=== PATIENT | male | born 1945 | race Caucasian/White ===

== ENCOUNTER → 2023-04-07 07:03 | Outpatient (REF) | payer MEDICARE, BC, SELFPAY ==
[2023-04-07 07:33] LABS: % Basophils 0.8 % (0-2); % Eosinophils 10.3 % (0-6); % Immature Granulocytes 0.4 % (0-0.5); % Lymphocytes 6.1 % (20.5-51.1); % Monocytes 12.7 % (1.7-9.3); % Neutrophils 69.7 % (42.2-75.2); Absolute Eosinophils 0.5 10^3/uL (0-0.7); Absolute Lymphocytes 0.3 10^3/uL (1.2-3.4); Absolute Monocytes 0.6 10^3/uL (0.1-0.6); Absolute Neutrophils 3.5 10^3/uL (1.4-6.5); Hematocrit 45.1 % (39.0-52.0); Hemoglobin 15.1 g/dL (13.0-18.0); Mean Corp Hgb Conc. 33.5 g/dL (33.0-37.0); Mean Corpuscular Volume 89.5 fL (80.0-94.0); Mean Platelet Volume 10.5 fL (7.4-10.4); Nucleated Red Blood Cells % 0 % (-); Platelet Count 266 10^3/uL (130-400); Red Blood Cell Count 5.04 10^6/uL (4.70-6.10); Red Cell Dist. Width 13.6 % (11.5-14.5)
[2023-04-07 07:57] LABS: ALT (SGPT) 35 U/L (0-50); AST (SGOT) 44 U/L (17-59); Albumin 3.2 g/dl (3.5-5.0); Alkaline Phosphatase 104 U/L (38-126); Blood Urea Nitrogen 23 mg/dl (9-20); Calcium 9.3 mg/dl (8.4-10.2); Carbon Dioxide 34 mmol/L (22-30); Chloride 102 mmol/L (98-107); Glucose 103 mg/dl (70-99); HDL Cholesterol 58 mg/dl; LDL Cholesterol, Calculated 94 mg/dl; Potassium 4.5 mmol/L (3.5-5.1); Sodium 136 mmol/L (135-145); Total Bilirubin 0.4 mg/dl (0.2-1.3); Total Cholesterol 163 mg/dl (50-199); Total Protein 5.5 g/dl (6.3-8.2); Triglyceride 56 mg/dl (10-149); Very Low Density Lipoprotein 11 mg/dl (0-30); eGFR > 60.00
[2023-04-07 08:28] LABS: TSH 2.94 uIU/ml (0.47-4.68)
[2023-04-07 09:34] LABS: Glycohemoglobin (HgbA1c) 6.4 % (4.0-5.6)
== END ==
LOC: REG 07:03
PROVIDERS: ATTENDING PHYSICIAN Family Medicine
DX: R73.9 Hyperglycemia, unspecified (principal); E03.9 Hypothyroidism, unspecified; R73.03 Prediabetes; I10 Essential (primary) hypertension; R53.83 Other fatigue
CPT/HCPCS: 36415; 80053; 80061; 83036; 84443; 85025

== ENCOUNTER 2023-04-19 06:41 | Inpatient (IN) | payer MEDICARE, BC, SELFPAY ==
[2023-04-19] VITALS (18 sets, daily range): BP systolic 103–195; BP diastolic 55–112; BMI 24.0; BMI 23.4
--- NOTE | 2023-04-19 04:11 | ED.GENMED ---
History of Present Illness
<SANIA Boggs - Last Filed: 04/19/23 04:28>
General
Chief Complaint: Abdominal Pain
Source: patient
Exam Limitations: none
Time Seen by Provider: 04/19/23 03:57
Nursing documentation reviewed up to this point in time: agreed with
Travel History
Have you had any contact with someone who has COVID-19?: No
Do you have any symptoms of coronavirus? Fever > 100 degrees, chills, cough, shortness of breath, sore throat, loss of taste or smell, muscle aches, or headache?: No
History of Present Illness
History of Present Illness:
This is a 78 year old male, with a PMH of HTN, prostate cancer, IBS, sleep apnea, and hypothyroidism, who presents to the ED c/o upper abdominal pain x 6 hours. Pt states he was going to bed when the pain started. He states it is localized to his
upper abdomen and is worsening. He took tums, gas-x, and 8mg of zofran 5 hours ago but they did not help. He also has associated nausea. He denies any fever, chills, SOB, WILSON, vomiting, diarrhea, constipation, congestion, or cough. Pt does state he
has had some reflux symptoms as well.
Past History
<SANIA Boggs - Last Filed: 04/19/23 04:28>
Past History
ED Past Medical History: Cancer (Prostate CA), HTN, NIDDM (Diet controlled), Hypothyroidism, Psychiatric and Other (Chronic constipation, Colitis, Cellulitis, IBS)
ED Past Surgical History: Other (Hernia repair)
Social History
Tobacco: Non-smoker
Alcohol: None
Drug: Marijuana
Personal:
Living: alone
Employment: Retired
Family History
Family History: Other (Noncontributory)
Review of Systems
<SANIA Boggs - Last Filed: 04/19/23 04:28>
Review of Systems
Allergies reviewed?: Yes
All Other Systems: ROS reviewed and negative except as documented in HPI and ROS
Constitutional: Reports no symptoms; Denies fever or chills
EENT: Reports no symptoms
Respiratory: Reports no symptoms; Denies cough or trouble breathing
ABD/GI: Reports abdominal pain and nausea; Denies vomiting, diarrhea or constipated
: Reports no symptoms
Musculoskeletal: Reports no symptoms
Skin: Reports no symptoms
Neurological: Reports no symptoms; Denies headache
Psychiatric: Reports no symptoms
Phy Exam
<SANIA Boggs - Last Filed: 04/19/23 04:28>
General Physical Exam
General Presentation: no apparent distress
General age: appears stated age
General Skin: warm and dry
General Habitus: normal
General Mental: alert
General Hydration: appears well hydrated
ENT Exam
ENT Exam: pharynx normal, normocephalic and swallowing well
Cardiovascular Exam
Cardiovascular Exam: regular rate/rhythm, no edema, no murmur and normal peripheral pulses
Pulmonary Exam
Pulmonary Exam: lungs clear, no respiratory distress, no rales, no crackles, no rhonchi, no wheezing and no cough
Gastrointestinal Exam
Gastrointestinal Exam: normal bowel sounds, distended and tender (epigastric)
Neurological Exam
Neurological Exam: alert and oriented x3
Musculoskeletal Exam
Musculoskeletal Exam: full ROM and no edema
Skin Exam
Skin Exam: normal color and warm/dry
Psychiatric Exam
Psychiatric Exam: normal mood/affect
Course
<SANIA Boggs - Last Filed: 04/19/23 04:28>
Orders/Labs/Results
Orders:
Orders
04/19/23 04:10
Electrocardiogram (*1) Stat
Reason for Study: Abdominal Pain
EKG- Treatment ONCE
Urinalysis Reflex To Culture Urgent
04/19/23 04:27
0.9% Sodium Chloride 1000 ml [Nss] 1,000 ml IV BOLUS
Morphine Sulfate 4 mg IV NOW STA
Ondansetron Injectable [Zofran] 4 mg IV NOW STA
04/19/23 04:30
CT Abd/Pel (IV only)-DH only Urgent
Comment:
Reason For Exam: upper abd pain
04/19/23 04:51
Complete Blood Count/With Diff Urgent
Comprehensive Metabolic Panel Urgent
Lactic Acid Urgent
Lipase Urgent
04/19/23 06:03
HYDROmorphone [Dilaudid] 1 mg IV NOW STA
Abnormal Lab Results
04/19/23
04:51
MPV 10.6 H fL
(7.4-10.4)
Absolute Neuts (auto) 9.3 H 10^3/uL
(1.4-6.5)
Absolute Lymphs (auto) 0.4 L 10^3/uL
(1.2-3.4)
Absolute Monos (auto) 0.8 H 10^3/uL
(0.1-0.6)
Neutrophils % 86.6 H %
(42.2-75.2)
Lymphocytes % 3.6 L %
(20.5-51.1)
BUN 24 H mg/dl
(9-20)
Creatinine 0.6 L mg/dL
(0.7-1.3)
Glucose 145 H mg/dl
(70-99)
04/19/23 04:51
04/19/23 04:51
Vital Signs
Initial and Last Documented VS:
Initial Vital Signs
Temp Pulse Resp BP Pulse Ox
97.7 F 78 22 136/77 94
04/19/23 03:46 04/19/23 03:46 04/19/23 03:46 04/19/23 03:46 04/19/23 03:46
Last Documented Vital Signs
Temp Pulse Resp BP Pulse Ox
97.7 F 88 17 172/103 93
04/19/23 03:46 04/19/23 06:15 04/19/23 06:15 04/19/23 06:04 04/19/23 06:15
<Paul Joya DO - Last Filed: 04/19/23 06:27>
Orders/Labs/Results
Orders:
Orders
04/19/23 04:10
Electrocardiogram (*1) Stat
Reason for Study: Abdominal Pain
EKG- Treatment ONCE
Urinalysis Reflex To Culture Urgent
04/19/23 04:27
0.9% Sodium Chloride 1000 ml [Nss] 1,000 ml IV BOLUS
Morphine Sulfate 4 mg IV NOW STA
Ondansetron Injectable [Zofran] 4 mg IV NOW STA
04/19/23 04:30
CT Abd/Pel (IV only)-[facility] only Urgent
Comment:
Reason For Exam: upper abd pain
04/19/23 04:51
Complete Blood Count/With Diff Urgent
Comprehensive Metabolic Panel Urgent
Lactic Acid Urgent
Lipase Urgent
04/19/23 06:03
HYDROmorphone [Dilaudid] 1 mg IV NOW STA
Abnormal Lab Results
04/19/23
04:51
MPV 10.6 H fL
(7.4-10.4)
Absolute Neuts (auto) 9.3 H 10^3/uL
(1.4-6.5)
Absolute Lymphs (auto) 0.4 L 10^3/uL
(1.2-3.4)
Absolute Monos (auto) 0.8 H 10^3/uL
(0.1-0.6)
Neutrophils % 86.6 H %
(42.2-75.2)
Lymphocytes % 3.6 L %
(20.5-51.1)
BUN 24 H mg/dl
(9-20)
Creatinine 0.6 L mg/dL
(0.7-1.3)
Glucose 145 H mg/dl
(70-99)
04/19/23 04:51
04/19/23 04:51
Vital Signs
Initial and Last Documented VS:
Initial Vital Signs
Temp Pulse Resp BP Pulse Ox
97.7 F 78 22 136/77 94
04/19/23 03:46 04/19/23 03:46 04/19/23 03:46 04/19/23 03:46 04/19/23 03:46
Last Documented Vital Signs
Temp Pulse Resp BP Pulse Ox
97.7 F 88 17 172/103 93
04/19/23 03:46 04/19/23 06:15 04/19/23 06:15 04/19/23 06:04 04/19/23 06:15
<Paul Joya DO - Last Filed: 04/19/23 06:27>
MDM/Problems Addressed
Differential Diagnosis Includes:
AAA, pancreatitis, duodenitis, gastritis, cholecystitis, IBS, colonic obstruction, small bowel obstruction
MDM/Problems Addressed:
Abdominal pain, small bowel obstruction
<DO Prisca Post Last Filed: 04/19/23 06:27>
*Radiology
Radiology exam reviewed: preliminary read by ED provider (No free air.)
*Pulse Oximetry
Patient hypoxic: no
*Hook Up Interpretation
Rate: normal
Interpretation: normal
Rhythm: sinus
*Critical Care Note
Total Time (30-74mins, 75-104mins- exclusive of procedures): Not Applicable
Data Reviewed
Source: patient
Further Testing Considered But Not Given:
Consider NG tube but patient is not vomiting and appears stable
<Paul Joya DO - Last Filed: 04/19/23 06:27>
Patient Management
Discussion with other providers: Hospitalist
Escalation/DeEscalation of care consider admission/obs:
78-year-old male who presents with pain in the upper abdomen. Appears a small bowel obstruction by CT. Continue pain control, IV fluids and admit
<Paul Joya DO - Last Filed: 04/19/23 06:27>
Update Note
Update Note:
0615 small bowel fraction by CT. Patient has not vomiting does feel little bit better. Continue to monitor symptoms and treat with IV fluids. Admit
ED Attending Note
<SANIA Boggs - Last Filed: 04/19/23 04:28>
-
Portions of this chart may have been created with voice recognition software.� Occasional wrong word or��sound alike� substitutions may have occurred due to the inherent limitations of voice recognition software.
<Paul Joya DO - Last Filed: 04/19/23 06:27>
ED Attending Note
Patient seen and examined by attending physician: Yes
I performed the substantive portion of visit, reviewed & personally made and approve the management plan that is documented in note by myself or MAYELIN.: Yes
ED Attending Note:
78-year-old male who presents with abdominal pain that began tonight around 1130 or 12. Patient states he does have a little bit of nausea. He tried Tums at home without relief. He also tried some Zofran. Patient reports the pain is in the upper
half of his abdomen. No fevers. No injury. No rash. No sick contacts. Has had IBS in the past and this is different. Exam: Awake and alert, no distress, moderate upper abdominal tenderness with moderate distention, hypoactive bowel sounds.
Assessment plan: Check labs, CT, pain control
Discharge Plan
Departure
Patient Disposition: Admit
Date of Disposition: 04/19/23
Time of Disposition: 06:19
Admit to: Med/Surg
Presentation/result/management discussed w/ accepting MD/DO: Hospitalist
Discharge Problem:
SBO (small bowel obstruction)
Prescriptions:
No Action
lisinopril 20 MG tablet
10 mg PO DAILY
Requip:
8 mg PO HS
valacyclovir [Valtrex] 1,000 MG tablet
1 tab PO DAILY
levothyroxine 25 MCG tablet
25 mcg PO DAILY
gabapentin 300 MG capsule
600 mg PO HS
Flonase Nasal [place]:
2 sprays intranasal BID
dextroamphetamine-amphetamine [Adderall] 30 MG tablet
30 mg PO BID
simethicone [Gas Relief 80 (simethicone)] 80 MG tablet,chewable
80 mg PO QIDPRN PRN (Reason: gas pain) 0RF
cetirizine 10 MG tablet
10 mg PO DAILY
ketotifen fumarate [Allergy Eye (ketotifen)] 10 ML drops
1 drp OP BID
beta carotene 25,000 UNIT capsule
25,000 unit PO DAILY
ascorbic acid (vitamin C) [Vitamin C] 500 MG tablet
1,000 mg PO DAILY
temazepam [Restoril] 30 MG capsule
30 mg PO HS
folic acid 1 MG tablet
5 mg PO DAILY
vitamin E 400 UNIT capsule
800 unit PO DAILY
vitamin B complex [Neurodep] 1 CAP capsule
1 cap PO DAILY
docosahexaenoic acid-epa 1 CAP capsule
2 cap PO DAILY
magnesium oxide 500 MG capsule
500 mg PO DAILY
cholecalciferol (vitamin D3) 2,000 UNITS tablet
2,000 units PO DAILY
lamotrigine [Lamictal XR] 250 MG tablet extended release 24hr
250 mg PO DAILY
Chamomile
4 capsules PO HS
Multi Mineral
4 tablets PO DAILY
mupirocin 22 GM ointment
1 applic TP TID Qty: 22 0RF
acetaminophen-codeine 1 TABLET tablet
1 tab PO Q4HPRN PRN (Reason: pain) Qty: 10 0RF
Referrals:
Linn Gutierrez MD [Family Provider] -
Interventions
Interventions:
*Risk Screen - Suicide Last Done: 04/19/23 03:46
*General Assessment Last Done: 04/19/23 05:10
*Neglect/Abuse Screening Last Done: 04/19/23 03:46
ED- Fall Risk Assessment Last Done: 04/19/23 05:12
*ED COVID-19 Vaccine History Last Done: 04/19/23 05:10
JD-Jebzsd-Cerysjzqde Assessment Last Done: 04/19/23 05:10
[2023-04-19] MEDS: ZOFRAN 4 MG IV (04:53)
[2023-04-19] MEDS: NSS 1000 IV (04:53)
[2023-04-19] MEDS: MORPHINE SULFATE 4 MG IV (04:53)
[2023-04-19 05:21] LABS: % Basophils 0.4 % (0-2); % Eosinophils 1.8 % (0-6); % Immature Granulocytes 0.3 % (0-0.5); % Lymphocytes 3.6 % (20.5-51.1); % Monocytes 7.3 % (1.7-9.3); % Neutrophils 86.6 % (42.2-75.2); Absolute Eosinophils 0.2 10^3/uL (0-0.7); Absolute Lymphocytes 0.4 10^3/uL (1.2-3.4); Absolute Monocytes 0.8 10^3/uL (0.1-0.6); Absolute Neutrophils 9.3 10^3/uL (1.4-6.5); Hematocrit 48.5 % (39.0-52.0); Hemoglobin 16.2 g/dL (13.0-18.0); Mean Corp Hgb Conc. 33.4 g/dL (33.0-37.0); Mean Corpuscular Hgb 29.4 pg (27.0-31.0); Mean Platelet Volume 10.6 fL (7.4-10.4); Nucleated Red Blood Cells % 0.2 % (-); Platelet Count 289 10^3/uL (130-400); Red Blood Cell Count 5.51 10^6/uL (4.70-6.10); Red Cell Dist. Width 13.7 % (11.5-14.5); White Blood Cell Count 10.7 10^3/uL (4.8-10.8)
[2023-04-19 05:41] LABS: Lactic Acid 1.1 mmol/L (0.7-2.0)
[2023-04-19 05:44] LABS: ALT (SGPT) 42 U/L (0-50); AST (SGOT) 51 U/L (17-59); Albumin 3.7 g/dl (3.5-5.0); Alkaline Phosphatase 103 U/L (38-126); Blood Urea Nitrogen 24 mg/dl (9-20); Carbon Dioxide 30 mmol/L (22-30); Chloride 101 mmol/L (98-107); Estimated Creatinine Clearance 101 ml/min; Glucose 145 mg/dl (70-99); Lipase 270 U/L (23-300); Potassium 4.7 mmol/L (3.5-5.1); Sodium 136 mmol/L (135-145); Total Bilirubin 0.4 mg/dl (0.2-1.3); Total Protein 6.3 g/dl (6.3-8.2); eGFR > 60.00
[2023-04-19] MEDS: DILAUDID 1 MG IV (06:09)
--- NOTE | 2023-04-19 06:51 | HPS.HSE ---
Family Physician
-
Family Physician: Linn Gutierrez MD
Chief Complaint
-
Severe abdominal pain
History of Present Illness
78-year-old male with history of hypothyroidism, restless leg syndrome, presented to the hospital complaining of the severe generalized abdominal pain, started yesterday around 11 PM, was extremely severe patient described it was 12/24, persistent
associated with nausea but no vomiting, last time moved his bowels yesterday morning and not been passing gas since yesterday afternoon. Abdominal is extremely bloated and distended. Denies any fever or chill or cough or congestion, no headache.
No urinary symptoms, no changes stool or urine color.
Never had this kind of symptoms before. Workup in the ER showed small bowel obstruction. Received pain medication pain distal 10/24 and abdominal physical distended.
He is awake, alert and oriented x 3, looks restless but not in acute distress.
His condition discussed with ER physician and the nurse.
Had history of prostatectomy and hernia repair.
Medical History
Past Medical History
Past Medical History: Reports Other
Additional Past Medical History:
Past medical history archive reviewed:
Mood disorder
Hypertension
Lactose intolerance
Squamous cell cancer of skin status post resection
Restless leg syndrome
ADHD
For thyroidism
Prostate cancer status post surgery
Back pain with spinal stenosis.
Surgical history:
Prostatectomy
Urethroplasty
Dental implant
Skin cancer removal
Hernia repair
Past Surgical History: Reports Other
Social History
Unable to obtain full social history at this time due to: Other
Family History
Family History: Other
Allergies / Home Medications
Allergies reflects when Allergies were last updated in [facility].
Home Medications with original date entered in [facility]
Allergy/Medication List:
Allergies
Allergy/AdvReac Type Severity Reaction Status Date / Time
Penicillins Allergy Unknown Verified 04/19/23 03:48
Home Medications
Requip: 8 mg PO HS 07/04/12
lisinopril 20 mg tablet 10 mg PO DAILY 07/04/12
gabapentin 300 mg capsule 600 mg PO HS 01/01/18
levothyroxine 25 mcg tablet 25 mcg PO DAILY 01/01/18
valacyclovir 1 gram tablet (Valtrex) 1 tab PO DAILY 01/01/18
Flonase Nasal [place]: 2 sprays intranasal BID Allergies 01/02/18
dextroamphetamine-amphetamine 30 mg tablet (Adderall) 30 mg PO BID 02/01/18
simethicone 80 mg chewable tablet (Gas Relief 80 (simethicone)) 80 mg PO QIDPRN PRN gas pain 02/05/18
Chamomile 4 capsules PO HS 10/22/18
Multi Mineral 4 tablets PO DAILY 10/22/18
ascorbic acid (vitamin C) 500 mg tablet (Vitamin C) 1,000 mg PO DAILY 10/22/18
beta carotene 7,500 mcg (25,000 unit) capsule 25,000 unit PO DAILY 10/22/18
cetirizine 10 mg tablet 10 mg PO DAILY 10/22/18
cholecalciferol (vitamin D3) 50 mcg (2,000 unit) tablet 2,000 units PO DAILY 10/22/18
docosahexaenoic acid (dha)-epa 120 mg-180 mg capsule 2 cap PO DAILY 10/22/18
folic acid 1 mg tablet 5 mg PO DAILY 10/22/18
ketotifen fumarate 0.025 % (0.035 %) eye drops (Allergy Eye (ketotifen)) 1 drp OP BID 10/22/18
lamotrigine 250 mg tablet,extended release 24 hr (Lamictal XR) 250 mg PO DAILY 10/22/18
magnesium oxide 500 mg capsule 500 mg PO DAILY 10/22/18
temazepam 30 mg capsule (Restoril) 30 mg PO HS 10/22/18
vitamin B complex (Neurodep) 1 cap PO DAILY 10/22/18
vitamin E 268 mg (400 unit) capsule 800 unit PO DAILY 10/22/18
acetaminophen 300 mg-codeine 30 mg tablet 1 tab PO Q4HPRN PRN pain #10 tabs 01/13/19
mupirocin 2 % topical ointment 1 applic TP TID ##22 01/13/19
Review of Systems
-
A 12 point ROS was completed and negative except as noted: Yes
Physical Exam
Vital Signs
Vital Signs
Temp Pulse Resp BP Pulse Ox
97.7 F 88 17 172/103 93
04/19/23 03:46 04/19/23 06:15 04/19/23 06:15 04/19/23 06:04 04/19/23 06:15
physical exam:
General: Restless, moving around in the bed, awake, alert and oriented x3, not in distress and holds appropriate conversation.
HEENT: No active discharge, ecchymosis or bruising, moist lips, tongue and mucous membrane.
Eyes: No discharge or red conjunctiva, no nystagmus, pupils are reactive and equal
Neck:Supple, no JVD no bruit no goiter.
Respiratory: Normal AP contour and diameter, normal chest wall movement, normal respiratory effort, no respiratory distress,
Lungs: Good air entry bilaterally, no wheezing or rhonchi, no rales or crackles
Heart: S1, S2 regular, normal rate, no added sound.
Gastrointestinal: Distended, tympanic, absent bowel sounds, soft, generalized tenderness,, no guarding or rigidity or organomegaly
Musculoskeletal: , no chest wall abnormality or tenderness. All joints and extremities have good range of motion, no muscle tenderness or any joint swelling or tenderness.
Extremities: No pitting edema, good peripheral pulses, good range of motion
Skin: Warm and dry, no ulceration, normal color.
Neurological: Awake, alert and oriented x3, no facial droop, moves extremities speech clear and comprehensive, good muscle tone,
Psychiatric: Normal mood, normal thought and judgment, normal affect,
Physical Exam
General: Other
Laboratory Results
-
04/19/23 04:51
04/19/23 04:51
Laboratory Results
Lactic Acid 1.1 mmol/L (0.7-2.0) 04/19/23 04:51
Total Bilirubin 0.4 mg/dl (0.2-1.3) 04/19/23 04:51
AST 51 U/L (17-59) 04/19/23 04:51
ALT 42 U/L (0-50) 04/19/23 04:51
Alkaline Phosphatase 103 U/L (38-126) 04/19/23 04:51
Lipase 270 U/L (23-300) 04/19/23 04:51
CT abdominal pelvis echo reviewed by me, showed small bowel obstruction, please refer to radiologist report once available
EKG: Showed sinus rhythm at around 81, PA 202, QTc 443, evidence of prior inferior infarct otherwise no acute abnormalities.
Data Reviewed
-
Diagnostic Radiology: Image Personally Visualized and interpreted, Discussed with Physician, Discussed with Nurse and Discussed with Patient
Medical Tests (Nuc Med, Echo, EKG etc): Image Personally Visualized and interpreted, Discussed with Physician, Discussed with Nurse and Discussed with Patient
Lab Data: Labs Reviewed by me and Discussed with Patient
Old Records: Reviewed
Impression/Plan
-
IMPRESSION:
78-year-old male presented to the hospital with severe abdominal pain, patient have history of prior prostatectomy for prostate cancer, workup showed small bowel obstruction, he is still in severe abdominal pain.
Severe generalized abdominal pain
Small bowel obstruction, likely secondary to adhesion,
Hypertension
Restless leg syndrome
Hypothyroidism
72
PLAN:
Because of the degree of the pain and distention he has even he has no vomiting alcohol insert NG to for now.
Pain and nausea medication
Surgery consult and they been contacted by the ER physician
Recheck lab.
IV fluid
Home medication reviewed I will hold all his medication because he takes temazepam every night to avoid withdrawal I will put him on Ativan 0.5 mg sublingually for now and
Hold levothyroxine can be changed to IV after 5 days if he is still NPO.
Vasotec 2.5 mg every 6 hour, IV hold for systolic less than 120.
All discussed the patient
Discussed with ER physician
CODE STATUS full code
DVT prophy
[2023-04-19] MEDS: ATIVAN 0.5 MG SL ×2 (08:50→22:17)
[2023-04-19] MEDS: DILAUDID 0.5 MG IV (08:50)
--- NOTE | 2023-04-19 09:25 | W.PN.HOSP.TC ---
Today's Communication/Plan
-
N.p.o.
IV fluids
Pain management
Daily enema
GI consult
Assessment / Plan
Assessment / Plan
-
IMPRESSION:
Presentation with severe generalized abdominal pain.
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
GERD
Type 2 diabetes
Mood disorder
Hypertension
Lactose intolerance
Squamous cell cancer of skin status post resection
Restless leg syndrome
ADHD
For thyroidism
Prostate cancer status post surgery
Back pain with spinal stenosis.
Hypothyroidism.
Portal vein thrombosis.
PLAN:
Presentation with severe generalized abdominal pain.
-Patient with past medical history of recurrent constipation, with multiple abdominal surgeries, s/p open bilateral inguinal hernias, s/p robotic prostatectomy, s/p urethroplasty.
-CT abdomen and pelvis with distal small bowel obstruction with large volume of feces impaction but no clear transition point or evidence of pneumatosis/free air.
-Patient afebrile with normal white cell count.
-NG tube in place.
-N.p.o.
-Pain management.
-Daily enema.
-GI consult.
-Surgical evaluation appreciated.
-IV fluid.
-Ondansetron as needed.
Essential hypertension.
-Vasotec
-Monitor hemodynamics.
Hypothyroidism
-Hold levothyroxine
Type 2 diabetes
Regular Accu-Cheks
DVT prophy: Lovenox
Anticipated Discharge: 24 - 48 hours
Subjective/Interval History
-
Date of Service: April 19, 2023
Objective Data
-
Labs:
Laboratory Results
04/19/23
04:51
WBC 10.7
Hgb 16.2
Hct 48.5
Plt Count 289
Sodium 136
Potassium 4.7
Chloride 101
Carbon Dioxide 30
BUN 24 H
Creatinine 0.6 L
Glucose 145 H
Calcium 10.0
Total Bilirubin 0.4
AST 51
ALT 42
Alkaline Phosphatase 103
Vital Signs:
Vital Signs
Temp Pulse Resp BP Pulse Ox
97.7 F 88 17 172/103 93
04/19/23 03:46 04/19/23 06:15 04/19/23 06:15 04/19/23 06:04 04/19/23 06:15
Review of Systems
-
History Source: Patient
All other systems: Not reviewed unless documented
Constitutional: Reports No Symptoms; Denies Fever
EENT: Reports No Symptoms Reported
Respiratory: Reports No Symptoms; Denies Wheezing
Cardiac: Reports No Symptoms; Denies Chest Pain or Palpitations
Abdomen/GI: Reports Abdominal Pain (intermittent, 10/10 when pain meds wears off.) and Constipated; Denies Nausea, Vomiting or GERD
Genitourinary: Reports No Symptoms
Musculoskeletal: Reports No Symptoms
Skin: Reports No Symptoms
Neuro: Reports No Symptoms
Allergy / Immunology: Reports No Symptoms
Physical Exam
-
General: Well Developed, Well Nourished, No Apparent Distress and Other (NG tube in place)
HEENT: Normocephalic, Atraumatic and Moist Mucous Membranes
Respiratory: Clear to Auscultation; Negative Wheezes, Rales or Crackles
Cardiac: Regular Rhythm and S1/S2; Negative Murmur, Rub or Gallop
GI: Soft, Normal Bowel Sounds, Tender and Distended (Mildly distended); Negative Organomegaly
Rectal: Deferred by Provider
Musculoskeletal: No Clubbing, No Cyanosis and No Edema
Skin: Warm; Negative Rash
Neuro: Awake, Alert, Oriented, AO x 3 and Nonfocal/Grossly Intact
Psych: Calm and Intact Judgement/Insight
Data Reviewed
-
Diagnostic Radiology: Image personally visualized and interpreted, Report Reviewed by me and Discussed with Physician
CT Scan: Image personally visualized and interpreted, Report Reviewed by me and Discussed with Physician
Labs: Labs Reviewed by me and Discussed with Physician
Old Records: Reviewed
--- NOTE | 2023-04-19 09:51 | W.PN.UPDATE ---
Update Note
Progress Note Update
Impression:
Presentation with nausea and vomiting as well as abdominal pain and distention.
Small bowel obstruction secondary to adhesions
Essential hypertension
Restless leg syndrome
Hypothyroidism on replacement
History of prostate cancer status post prostatectomy
Plan:
Small bowel obstruction
CT scan.
1). Distal small bowel obstruction
2). Large volume feces throughout the colon suggesting constipation
3). Multilevel lumbar degenerative disc disease
Suspect secondary adhesions also with severe constipation.
Prior surgical history including prostatectomy, remote inguinal hernia repair, ureteral reconstruction surgery.
Exam and presentation with distended abdomen and hypoactive bowel sounds.
No clinical signs of bowel compromise on presentation
NG tube placed in ED.
Continue bowel rest.
Monitor NG tube output.
Continue IV fluids monitoring electrolytes closely
Surgery consultation
Agree with GI evaluation for constipation.
MOM enema ordered.
Essential hypertension
Off oral regimen given above.
Continue valsartan
Restless leg syndrome.
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
Continue sublingual Ativan.
Hypothyroidism on replacement.
Updated TSH pending.
[2023-04-19] MEDS: LR 1000 IV ×2 (09:54→23:00)
--- NOTE | 2023-04-19 10:24 | CON.GS ---
Medical History
-
Chief Complaint: Abdominal pain and distension
History of Present Illness:
Patient is a 78 yo M with a PMH of HTN, ADHD, RLS, hypothyroidism, SCC s/p resection, chronic back pain (no chronic opioids), s/p open bilateral inguinal hernia repairs with mesh, prostate cancer s/p robotic prostatectomy at [place], and s/p
urethroplasty. He has chronic issues with constipation and has been labeled as having IBS-C. He follows with Dr. Booth from GI. He presents with acute on chronic abdominal pain and distention. He states that his symptoms acutely worsened
yesterday evening. He denies any unusual foods, dehydration, or medication changes. No nausea or vomiting. Last bowel movement and passage of flatus was yesterday. He states that he takes daily MiraLAX and stool softeners. Most recent
colonoscopy was in 2020 and normal, of note, he had small 1 mm polyps (tubular adenoma and hyperplastic) in the transverse colon previously removed.
Past Medical History
Past Medical History: Cancer (SCC and prostate), HTN, Hypothyroidism, Psychiatric and Other (Chronic back pain, RLS, IBS/chronic constipation)
Past Surgical History: Hernia Repair (Open bl inguinal) and Urological (Robotic prostatectomy, urethroplasty)
Social History
Tobacco: Non-Smoker
Alcohol: None
Drug: None
Personal: Partner
Living: Alone
Family History
Family History: Reviewed & Noncontributory
Allergies / Home Medications
Allergy/AdvReac Type Severity Reaction Status Date / Time
Penicillins Allergy Unknown Verified 04/19/23 03:48
Medication Instructions Recorded Confirmed Type
Requip: 8 mg PO HS 07/04/12 10/22/18 History
lisinopril 20 mg tablet 10 mg PO DAILY 07/04/12 10/22/18 History
gabapentin 300 mg capsule 600 mg PO HS 01/01/18 10/22/18 History
levothyroxine 25 mcg tablet 25 mcg PO DAILY 01/01/18 10/22/18 History
valacyclovir 1 gram tablet 1 tab PO DAILY 01/01/18 10/22/18 History
(Valtrex)
Flonase Nasal [place]: 2 sprays intranasal BID Allergies 01/02/18 10/22/18 History
dextroamphetamine-amphetamine 30 30 mg PO BID 02/01/18 10/22/18 History
mg tablet (Adderall)
simethicone 80 mg chewable tablet 80 mg PO QIDPRN PRN gas pain 02/05/18 10/22/18 Rx
(Gas Relief 80 (simethicone))
Chamomile 4 capsules PO HS 10/22/18 10/22/18 History
Multi Mineral 4 tablets PO DAILY 10/22/18 10/22/18 History
ascorbic acid (vitamin C) 500 mg 1,000 mg PO DAILY 10/22/18 10/22/18 History
tablet (Vitamin C)
beta carotene 7,500 mcg (25,000 25,000 unit PO DAILY 10/22/18 10/22/18 History
unit) capsule
cetirizine 10 mg tablet 10 mg PO DAILY 10/22/18 10/22/18 History
cholecalciferol (vitamin D3) 50 2,000 units PO DAILY 10/22/18 10/22/18 History
mcg (2,000 unit) tablet
docosahexaenoic acid (dha)-epa 120 2 cap PO DAILY 10/22/18 10/22/18 History
mg-180 mg capsule
folic acid 1 mg tablet 5 mg PO DAILY 10/22/18 10/22/18 History
ketotifen fumarate 0.025 % (0.035 1 drp OP BID 10/22/18 10/22/18 History
%) eye drops (Allergy Eye
(ketotifen))
lamotrigine 250 mg tablet,extended 250 mg PO DAILY 10/22/18 10/22/18 History
release 24 hr (Lamictal XR)
magnesium oxide 500 mg capsule 500 mg PO DAILY 10/22/18 10/22/18 History
temazepam 30 mg capsule (Restoril) 30 mg PO HS 10/22/18 10/22/18 History
vitamin B complex (Neurodep) 1 cap PO DAILY 10/22/18 10/22/18 History
vitamin E 268 mg (400 unit) capsule 800 unit PO DAILY 10/22/18 10/22/18 History
acetaminophen 300 mg-codeine 30 mg 1 tab PO Q4HPRN PRN pain #10 tabs 01/13/19 Rx
tablet
mupirocin 2 % topical ointment 1 applic TP TID ##22 01/13/19 Rx
Review of Systems
-
A 10 point review of systems was completed, and was negative except as per HPI.
Physical Exam
Vital Signs
Temp Pulse Resp BP Pulse Ox
98.8 F 91 27 195/102 94
04/19/23 10:10 04/19/23 09:45 04/19/23 09:45 04/19/23 09:00 04/19/23 10:10
04/18/23 04/19/23 04/20/23
06:59 06:59 06:59
Actual Weight 71.5 kg
Body Mass Index (BMI) 24.0
Lab Results
04/19/23 04:51
04/19/23 04:51
WBC 10.7 10^3/uL (4.8-10.8) 04/19/23 04:51
Hgb 16.2 g/dL (13.0-18.0) 04/19/23 04:51
Hct 48.5 % (39.0-52.0) 04/19/23 04:51
Plt Count 289 10^3/uL (130-400) 04/19/23 04:51
Abs Immat Gran (auto) 0.0 10^3/uL (0-0.05) 04/19/23 04:51
Neutrophils % 86.6 % (42.2-75.2) H 04/19/23 04:51
Physical Exam
General: Well Developed, Well Nourished and No Apparent Distress
HEENT: Normocephalic, Anicteric and Other (NGT with feculent outputs)
Cardiac: Regular Rhythm
GI: Soft, Tender (Minimal diffusely), Distended (Palpable bowel loops), Incisions (Well healed) and Other (Non-peritoneal)
Musculoskeletal: No Edema
Skin: Warm and Dry
Neuro: Nonfocal/Grossly Intact
Data Reviewed
-
Radiology: Image Personally Visualized and interpreted
CT Scan: Image Personally Visualized and interpreted
Labs: Labs Reviewed by me
Old Records: Reviewed
Assessment / Plan
-
Patient is a 78 yo M p/w acute on chronic issues with severe constipation
In review of his CT scan there is no evidence of free air or pneumatosis. CT scan is somewhat limited by lack of oral contrast. Significant constipation and stool burden throughout his colon extending down to the rectum. Evidence of fecalization
of the distal small bowel with diffuse small bowel dilation as well as gastric distention. No clear transition point within the small bowel. Based on his clinical history, physical exam, and radiographic findings this is likely all related to
severe dysmotility and constipation. Possibly related to adhesions from his robotic prostatectomy (unlikely from open inguinal hernia repair). No plans or indication for surgical intervention at this time. Recommend GI consultation.
-- NPO, NGT
-- Daily enema
-- GI consultation
[2023-04-19 10:25] LABS: Urine Albumin Negative (Neg - Trace); Urine Bilirubin Negative (Negative); Urine Character Slightly Cloudy (Clear); Urine Color Yellow; Urine Glucose Negative (Negative); Urine Ketone Negative (Negative); Urine Leukocyte Negative (Negative); Urine Nitrite Negative (Negative); Urine Occult Blood Negative (Negative); Urine Specific Gravity 1.015 (<1.030); Urine Urobilinogen Negative (Neg - 1+)
[2023-04-19 11:07] LABS: CEA 2.19 ng/ml
[2023-04-19] MEDS: VASOTEC 2.5 MG IV (12:52)
--- NOTE | 2023-04-19 16:15 | CON.GI ---
Addendum entered and electronically signed by Perlita Heller MD 04/19/23 18:00:
I saw and examined the patient.
The BUSINESS ETHICS PROFESSOR's note was reviewed and I agree with the note.
Comment: This is a 78-year-old male who has a history of hypothyroidism with recently normal TSH level on levothyroxine, chronic constipation who has been taking MiraLAX daily, Colace daily and magnesium 500 mg daily with mostly regular bowel
movements with this regimen for the past 3 years or so. Yesterday he had a normal bowel movement in the morning but later in the evening he started to develop severe diffuse abdominal pain with bloating which progressively worsened prompting him to
come to the emergency room and admission CT was suggestive of constipation with retained stool and possible distal small bowel obstruction. Since then he has had an NG tube placed and also had a milk of molasses enema and had a large bowel movement
after that and he is starting to feel much improved. Also noted input from surgery.
Assessment and plan abdominal pain with distention and nausea secondary to severe constipation and possible small bowel obstruction related to this and also likely from underlying adhesions he does have prior prostatectomy and bilateral inguinal
hernia repairs with mesh. He is feeling much improved since he received milk of molasses enema had a large bowel movement after that and also with NG tube placement with intermittent suction for decompression. Continue serial abdominal exams will
repeat obstruction series tomorrow will give him another milk of molasses enema tonight. Once able to tolerate p.o. will restart him on his bowel regimen he says he had tried Linzess in the past but gave him diarrhea he wants to resume MiraLAX, I
told him to increase it to twice daily along with his magnesium and Colace and he will follow-up with Dr. Booth as an outpatient to discuss his bowel regimen. Most likely will resolve with conservative treatment since he already feels markedly
improved.
Original Note:
Consultation
-
Date/Time Consultation Requested: 04/19/23 1600
Date/Time Consultation Performed: 04/19/23 1615
Requesting Provider: Johnny Minor MD
Performing Provider: LARS Bonilla, Perlita Heller MD
Reason for Consultation: constipation, possible small bowel obstruction
Medical History
Chief Complaint / HPI
Chief Complaint: abdominal pain, constipation
History of Present Illness:
Pt is a 78yo presents with hx hypothyroidism, mood disorder, prostate Ca with prior prostatectomy, skin CA, RLS, ADHD, spinal stenosis, b/l open inguinal hernia repairs with onset of generalized abdominal pain with nausea. CT on admission with
concern for distal SBO and large volume of feces in colon suggesting constipation. He has been seen by surgery with concern for constipation and had enema with several stools and NGT placement with some improvement.
Pt states he has been on colace, miralax and mag citrate regiment but admits to recently skipping some doses. Pt denies vomiting but per pt drained brown drainage with placement of NGT. He denies dysphagia, GERD, diarrhea, or bleeding. Last
colonoscopy 2020 [facility]- �The entire examined colon appeared normal.
Past Medical History
Past Medical History: Cancer (squamous cell cancer of skin s/p resection, prostate CA ), HTN, Hypothyroidism, Psychiatric (mood disorder, ADHD) and Other (lactose intolerance, restless leg syndrome, back pain with spinal stenosis )
Past Surgical History: Other (prostatectomy, urethroplasty, dental implant, skin cancer removal, b/l open inguinal hernia repairs)
Social History
Tobacco: Non-Smoker
Alcohol: None
Drug: Marijuana
Living: Alone
Employment: Retired
Family History
Family History: Other (father with hx polyps)
Allergies / Home Medications
Allergy/AdvReac Type Severity Reaction Status Date / Time
Penicillins Allergy Unknown Verified 04/19/23 03:48
Medication Instructions Recorded
levothyroxine 25 mcg tablet 25 mcg PO SUMOTUWETHFR@0800 01/01/18
simethicone 80 mg chewable tablet 80 mg PO QIDPRN PRN gas pain 02/05/18
(Gas Relief 80 (simethicone))
Chamomile 2 capsules PO HS 10/22/18
Multi Mineral 1 tab PO DAILY 10/22/18
ascorbic acid (vitamin C) 500 mg 1,000 mg PO DAILY 10/22/18
tablet (Vitamin C)
beta carotene 7,500 mcg (25,000 25,000 unit PO DAILY 10/22/18
unit) capsule
temazepam 30 mg capsule (Restoril) 30 mg PO HS 10/22/18
vitamin E 268 mg (400 unit) capsule 1,200 unit PO DAILY 10/22/18
Multi B Vitamin 1 tab PO DAILY 04/19/23
celecoxib 100 mg capsule 100 mg PO BID PRN mild pain 04/19/23
cholecalciferol (vitamin D3) 125 250 mcg PO DAILY 04/19/23
mcg (5,000 unit) tablet
clomipramine 75 mg capsule 75 mg PO HS 04/19/23
cyanocobalamin (vitamin B-12) 10,000 mcg sublingual DAILY 04/19/23
5,000 mcg sublingual tablet
docusate sodium 100 mg capsule 200 - 300 mg PO HS 04/19/23
fluticasone propionate 50 2 spray intranasal BIDPRN PRN 04/19/23
mcg/actuation nasal allergies
spray,suspension
gabapentin 600 mg tablet 1,200 mg PO HS 04/19/23
ibuprofen 200 mg tablet 400 mg PO TIDPRN PRN mild pain 04/19/23
ibuprofen 200 mg tablet 600 mg PO DAILYPRN PRN mild pain 04/19/23
levothyroxine 25 mcg tablet 50 mcg PO SA@0800 04/19/23
lisinopril 10 mg tablet 10 mg PO DAILY 04/19/23
lorazepam 1 mg tablet 1 mg PO HS PRN anxiety 04/19/23
magnesium citrate 100 mg tablet 500 mg PO HS 04/19/23
melatonin 3 mg tablet 3 mg PO HS 04/19/23
naproxen sodium 220 mg tablet 440 mg PO BID PRN mild pain 04/19/23
(Aleve)
omega 4-fuf-qem-fish oil 1,000 mg 2 cap PO DAILY 04/19/23
(120 mg-180 mg) capsule (Fish Oil)
ondansetron 8 mg disintegrating 8 mg PO Q8H PRN nausea/vomiting 04/19/23
tablet
polyethylene glycol 3350 17 gram 17 g PO DAILY 04/19/23
oral powder packet (Miralax)
polyethylene glycol 3350 17 gram 17 g PO DAILY PRN constipation 04/19/23
oral powder packet (Miralax)
pyridoxine (vitamin B6) 1 cap PO DAILY 04/19/23
ropinirole 4 mg tablet 4 mg PO HS 04/19/23
tadalafil 20 mg tablet 20 mg PO DAILY PRN ED 04/19/23
zaleplon 10 mg capsule 10 mg PO HS PRN insomnia 04/19/23
zinc 15 mg tablet 30 mg PO DAILY 04/19/23
Review of Systems
-
History Source: Patient
Constitutional: Reports No Symptoms
EENT: Reports No Symptoms
Respiratory: Reports No Symptoms
Cardiac: Reports No Symptoms
Abdomen/GI: Reports Abdominal Pain, Nausea and Constipated
: Reports No Symptoms
Musculoskeletal: Reports No Symptoms
Skin: Reports No Symptoms
Neurological: Reports Weakness
Endocrine: Reports No Symptoms
Hematologic/Lymphatic: Reports No Symptoms
Vital Signs
Temp Pulse Resp BP Pulse Ox
98.8 F 121 25 117/83 93
04/19/23 10:10 04/19/23 15:34 04/19/23 15:34 04/19/23 15:34 04/19/23 15:15
Physical Exam
Exam
General: Well Developed, Well Nourished and No Apparent Distress
HEENT: Normocephalic and Anicteric
Respiratory: Clear
Cardiac: Other (tachy)
GI: Soft, Tender (minimal ), Distended and Other (NGT with minimal drainage in second canister)
Genito-urinary: No Costovertebral Tender
Musculoskeletal: No Clubbing and No Cyanosis
Skin: Warm and Dry
Neuro: Awake, Alert and AO x 3
Psych: Calm
Results
WBC 10.7 10^3/uL (4.8-10.8) 04/19/23 04:51
Hgb 16.2 g/dL (13.0-18.0) 04/19/23 04:51
Hct 48.5 % (39.0-52.0) 04/19/23 04:51
MCV 88.0 fL (80.0-94.0) 04/19/23 04:51
Plt Count 289 10^3/uL (130-400) 04/19/23 04:51
Absolute Neuts (auto) 9.3 10^3/uL (1.4-6.5) H 04/19/23 04:51
Sodium 136 mmol/L (135-145) 04/19/23 04:51
Potassium 4.7 mmol/L (3.5-5.1) 04/19/23 04:51
Chloride 101 mmol/L (98-107) 04/19/23 04:51
Carbon Dioxide 30 mmol/L (22-30) 04/19/23 04:51
BUN 24 mg/dl (9-20) H 04/19/23 04:51
Creatinine 0.6 mg/dL (0.7-1.3) L 04/19/23 04:51
Calcium 10.0 mg/dl (8.4-10.2) 04/19/23 04:51
Total Bilirubin 0.4 mg/dl (0.2-1.3) 04/19/23 04:51
AST 51 U/L (17-59) 04/19/23 04:51
ALT 42 U/L (0-50) 04/19/23 04:51
Alkaline Phosphatase 103 U/L (38-126) 04/19/23 04:51
Lipase 270 U/L (23-300) 04/19/23 04:51
Diagnostic Image Results:
04/19/23 CT A/p with IV contrast
1). Distal small bowel obstruction
2). Large volume feces throughout the colon suggesting constipation
3). Multilevel lumbar degenerative disc disease
Prior GI Procedures:
Colonoscopy: 2020 [facility]- �The entire examined colon appeared normal.
colonoscopy : 2017 [facility] � � - One 1 mm polyp in the distal transverse colon, removed
�� � � � � � � � � � with a cold biopsy forceps. Resected and retrieved.-- Bx TA
�� � � � � � � � � � - One 1 mm polyp in the proximal transverse colon,
�� � � � � � � � � � removed with a cold biopsy forceps. Resected and
�� � � � � � � � � � retrieved. bx HP
colonoscopy: 2010 [facility] �� � - Preparation of the colon was fair.
�� � � � � � � � � � - Internal hemorrhoids.
�� � � � � � � � � � - Multiple non-bleeding colonic angioectasias.
�� � � � � � � � � � - Redundant colon.
Assessment / Plan
-
Pt is a 78yo presents with hx hypothyroidism, mood disorder, prostate Ca with prior prostatectomy, skin CA, RLS, ADHD, spinal stenosis, b/l open inguinal hernia repairs with onset of generalized abdominal pain with nausea. CT on admission with
concern for distal SBO and large volume of feces in colon suggesting constipation.
-abdominal pain CT concern for SBO and large stool burden
-tachycardia
-prostate CA with prior prostatectomy
-hx b/l inguinal hernia repairs with prior mesh
-hx urethroplasty
other medical problems:
-hypothyroidism TSH 2.94 03/2023
-mood disorder
-skinCA
-RLS
-ADHD
-spinal stenosis
PLAN:
etiology of symptoms with concern for underlying constipation, SBO vs other
appreciate surgical input
cont decompression with NGT, s/p enema
trend CBC and HR with tachycardia on exam
NPO
if improving and NGT output low consider clamping trial in AM
for additional enema tonight
limit narcotic if able cont antiemetics
discussed increased bowel regiment with Miralax, colace and mag citrate on regular basis after admission
will follow
-
-
Thank you for consultation and allowing me to participate in the patient's care. Please call the talent solutions manager GI physician during the after hours with any questions or concerns.
[2023-04-19] MEDS: OFIRMEV 100 IV (17:13)
[2023-04-19] MEDS: LOVENOX 40 MG SC (17:15)
[2023-04-19] MEDS: VASOTEC IV (17:17)
--- NOTE | 2023-04-19 19:40 | PTCARENOTE ---
Received pt from ED via stretcher. Stretcher pulled next to bed, pt stood and pivoted independently. AAOx3. NG tube present in right nare, connected to low intermittent suction. Assessed and oriented to room. Pt verbalized understanding of call
keller. Call keller within close reach. Will continue to monitor.
[2023-04-19] MEDS: CHLORASEPTIC/SORE THROAT SPRAY 1 SPRAY PO (22:29)
--- NOTE | 2023-04-19 22:45 | PTCARENOTE ---
Pt requested a substitute for his home medications: 4 mg ropinirole, 30 mg temazepam, gabapentin 1200 mg, and clomipramine 75 mg, THERMODYNAMIC PHYSICIST made aware. Pt complained of anxiety, THERMODYNAMIC PHYSICIST made aware, sublingual and intravenous ativan ordered, see MAR. Pt
complained of throat pain, THERMODYNAMIC PHYSICIST made aware, throat spray ordered, see APR. Will continue to monitor.
[2023-04-19] MEDS: NSS (PRESERVATIVE FREE) 0.25 ML IV (23:01)
[2023-04-19] MEDS: ATIVAN 0.5 MG IV (23:01)
[2023-04-20] MEDS: VASOTEC 2.5 MG IV ×2 (00:17→05:51)
[2023-04-20] MEDS: CHLORASEPTIC/SORE THROAT SPRAY 1 SPRAY PO (06:00)
[2023-04-20 07:00] VITALS: BP 116/75
[2023-04-20] MEDS: LR 1000 IV (08:49)
[2023-04-20] MEDS: ATIVAN 0.5 MG SL (08:52)
--- NOTE | 2023-04-20 09:02 | W.PN.UPDATE ---
Update Note
Progress Note Update
reviewed with nursing some c/o pain with NGT. good relief with enema and no output last few hours. Will order NGT clamp and check residual in 2 hours.
[2023-04-20 09:35] LABS: % Basophils 0.4 % (0-2); % Eosinophils 3.2 % (0-6); % Immature Granulocytes 0.4 % (0-0.5); % Lymphocytes 3.4 % (20.5-51.1); % Neutrophils 80.6 % (42.2-75.2); Absolute Eosinophils 0.3 10^3/uL (0-0.7); Absolute Lymphocytes 0.3 10^3/uL (1.2-3.4); Absolute Monocytes 1.1 10^3/uL (0.1-0.6); Absolute Neutrophils 7.5 10^3/uL (1.4-6.5); Hematocrit 40.4 % (39.0-52.0); Hemoglobin 13.8 g/dL (13.0-18.0); Mean Corp Hgb Conc. 34.2 g/dL (33.0-37.0); Mean Corpuscular Hgb 29.6 pg (27.0-31.0); Mean Corpuscular Volume 86.7 fL (80.0-94.0); Mean Platelet Volume 11.1 fL (7.4-10.4); Nucleated Red Blood Cells % 0 % (-); Platelet Count 248 10^3/uL (130-400); Red Blood Cell Count 4.66 10^6/uL (4.70-6.10); Red Cell Dist. Width 14.1 % (11.5-14.5); White Blood Cell Count 9.4 10^3/uL (4.8-10.8)
--- NOTE | 2023-04-20 09:45 | W.PN.GI.CBS2 ---
Addendum entered and electronically signed by Perlita Heller MD 04/20/23 15:56:
I saw and examined the patient.
The LOBBY ATTENDANT's note was reviewed and I agree with the note.
Comment: Small bowel obstruction likely secondary to severe constipation and dysmotility and and also probably related to adhesions, overall marked improvement after NG tube decompression and also enema and laxatives has had multiple bowel movements
and is able to tolerate diet now, NGT was DC earlier today, abd X ray also with improvement, stable for discharge with follow-up with Dr. Booth as outpatient and continue his bowel regimen as outpatient.
Addendum entered and electronically signed by LARS Lyons 04/20/23 10:59:
3/6 abd film with improved SBO, moderate stool add mirlax, senna and colace. Was on mag citrate tabs at home also. If residual low d/c NGT as X ray suggest advance.
Original Note:
Today's Communication / Plan
-
etiology of symptoms with concern for underlying constipation, SBO vs other
feeling much better today several stools overnight
will check follow up abdominal film
clamped NGT this am if volume stable after 2 hours and abd film stable will pull NGT and start clears diet with advancement
AM labs pending
discussed 3/5 increased bowel regiment with Miralax, colace and mag citrate on regular basis after admission
pt asking about discharge later
discussed with Dr. Wright
will follow
Assessment / Plan
-
Pt is a 78yo presents with hx hypothyroidism, mood disorder, prostate Ca with prior prostatectomy, skin CA, RLS, ADHD, spinal stenosis, b/l open inguinal hernia repairs with onset of generalized abdominal pain with nausea. CT on admission with
concern for distal SBO and large volume of feces in colon suggesting constipation.
-abdominal pain CT concern for SBO and large stool burden
-tachycardia- improvied
-prostate CA with prior prostatectomy
-hx b/l inguinal hernia repairs with prior mesh
-hx urethroplasty
other medical problems:
-hypothyroidism TSH 2.94 03/2023
-mood disorder
-skinCA
-RLS
-ADHD
-spinal stenosis
PLAN:
etiology of symptoms with concern for underlying constipation, SBO vs other
feeling much better today several stools overnight
will check follow up abdominal film
clamped NGT this am if volume stable after 2 hours and abd film stable will pull NGT and start clears diet with advancement
AM labs pending
discussed 04/18 increased bowel regiment with Miralax, colace and mag citrate on regular basis after admission
pt asking about discharge later
discussed with Dr. Wright
will follow
Subjective
Subjective
Date of Service: April 20, 2023
several stools, feeling better some discomfort with NGT
Objective
Data Reviewed
Laboratory Data:
Laboratory Results
Total Bilirubin 0.4 mg/dl (0.2-1.3) 04/19/23 04:51
AST 51 U/L (17-59) 04/19/23 04:51
ALT 42 U/L (0-50) 04/19/23 04:51
Alkaline Phosphatase 103 U/L (38-126) 04/19/23 04:51
Lipase 270 U/L (23-300) 04/19/23 04:51
Vital Signs and I&O:
Vital Signs
Temp Pulse Resp BP Pulse Ox
98.0 F 81 17 116/75 94
04/20/23 07:00 04/20/23 07:00 04/20/23 07:00 04/20/23 07:00 04/20/23 07:00
I&O
04/19/23 04/20/23 04/21/23
06:59 06:59 06:59
Intake Total 1200 / 1200
Output Total 1625 / 1625
Balance -425 / -425
Physical Exam
Physical Exam
HEENT: Anicteric and Moist mucous membranes
Cardiology: Normal Sinus Rhythm
Pulmonary: Clear
GI: Soft, Distended (minimal ), Non Tender and Other (NGT with 800 output )
Extremities: No Edema
Neuro: Non Focal
[2023-04-20 10:30] LABS: Blood Urea Nitrogen 22 mg/dl (9-20); Calcium 8.4 mg/dl (8.4-10.2); Carbon Dioxide 29 mmol/L (22-30); Chloride 104 mmol/L (98-107); Estimated Creatinine Clearance 101 ml/min; Glucose 99 mg/dl (70-99); Potassium 4.2 mmol/L (3.5-5.1); Sodium 135 mmol/L (135-145); eGFR > 60.00
[2023-04-20 11:01] LABS: TSH 2.85 uIU/ml (0.47-4.68)
[2023-04-20] MEDS: MIRALAX 17 GRAMS PO (12:15)
[2023-04-20] MEDS: VASOTEC IV (12:18)
--- NOTE | 2023-04-20 13:29 | W.PN.HOSP.TC ---
Addendum entered and electronically signed by Johnny Minor MD 04/20/23 17:02:
Patient seen and examined
Discussed with resident
Discussed with gastroenterology
Impression/plan)
Distal small bowel obstruction secondary to severe constipation
Patient with prior surgical interventions with initial concern for adhesions as a cause.
In review of the CAT scan with severe constipation, given milk of molasses enema with significant improvement.
Follow-up x-ray today with improved small bowel obstruction
NG tube removed after clamping.
Initiated on bowel regimen.
Diet is advanced with good tolerance
Plan is for discharge home with bowel regimen
Resume preadmission medications.
Original Note:
Today's Communication/Plan
-
Large bowel movement yesterday with improved abdominal pain while on MOM enema and NG tube.
NG tube clamping with subsequent removal today.
Patient tolerating advanced diet to LRD.
Discharge planning.
Assessment / Plan
Assessment / Plan
-
IMPRESSION:
Presentation with severe generalized abdominal pain.
CONDITIONS STABLE HELPER:
GERD
Type 2 diabetes
Mood disorder
Hypertension
Lactose intolerance
Squamous cell cancer of skin status post resection
Restless leg syndrome
ADHD
For thyroidism
Prostate cancer status post surgery
Back pain with spinal stenosis.
Hypothyroidism.
Portal vein thrombosis.
PLAN:
Small bowel obstruction suspected due to severe constipation vs adhesions.
-Patient with past medical history of recurrent constipation, with multiple abdominal surgeries, s/p open bilateral inguinal hernias, s/p robotic prostatectomy, s/p urethroplasty.
-CT abdomen and pelvis with distal small bowel obstruction with large volume of feces impaction but no clear transition point or evidence of pneumatosis/free air.
-Large-volume bowel movement yesterday with mom enema with NG tube in place.
-NG tube clamping with subsequent removal today.
-Patient tolerating diet advanced to LRD.
-Patient afebrile with normal white cell count.
-GI input appreciated.
-Agreed to restart him on bowel regimen, MiraLAX p.o. twice daily, magnesium and Colace. Patient with history of no improvement with Linzess.
-Surgical evaluation appreciated.
-Follow GI outpatient.
Essential hypertension.
-Vasotec
-Monitor hemodynamics.
Hypothyroidism
-Continue levothyroxine.
Type 2 diabetes
Regular Accu-Cheks
DVT prophy: Lovenox
Anticipated Discharge: Today
Subjective/Interval History
-
Date of Service: April 20, 2023
Objective Data
-
Labs:
Laboratory Results
04/20/23
07:13
WBC 9.4
Hgb 13.8
Hct 40.4
Plt Count 248
Sodium 135
Potassium 4.2
Chloride 104
Carbon Dioxide 29
BUN 22 H
Creatinine 0.6 L
Glucose 99
Calcium 8.4 D
Vital Signs:
Vital Signs
Temp Pulse Resp BP Pulse Ox
98.0 F 81 17 116/75 94
04/20/23 07:00 04/20/23 07:00 04/20/23 07:00 04/20/23 07:00 04/20/23 07:00
I&O
04/19/23 04/20/23 04/21/23
06:59 06:59 06:59
Intake Total 1200 / 1200
Output Total 1625 / 1625
Balance -425 / -425
Review of Systems
-
History Source: Patient
All other systems: Not reviewed unless documented
Constitutional: Reports No Symptoms; Denies Fever
EENT: Reports No Symptoms Reported
Respiratory: Reports No Symptoms; Denies Wheezing
Cardiac: Reports No Symptoms; Denies Chest Pain or Palpitations
Abdomen/GI: Denies Nausea, Vomiting or GERD
Genitourinary: Reports No Symptoms
Musculoskeletal: Reports No Symptoms
Skin: Reports No Symptoms
Neuro: Reports No Symptoms
Allergy / Immunology: Reports No Symptoms
Physical Exam
-
General: Well Developed, Well Nourished and No Apparent Distress
HEENT: Normocephalic, Atraumatic and Moist Mucous Membranes
Respiratory: Clear to Auscultation; Negative Wheezes, Rales or Crackles
Cardiac: Regular Rhythm and S1/S2; Negative Murmur, Rub or Gallop
GI: Soft, Nontender, Nondistended and Normal Bowel Sounds; Negative Organomegaly
Rectal: Deferred by Provider
Musculoskeletal: No Clubbing, No Cyanosis and No Edema
Skin: Warm; Negative Rash
Neuro: Awake, Alert, Oriented, AO x 3 and Nonfocal/Grossly Intact
Psych: Calm and Intact Judgement/Insight
Data Reviewed
-
Diagnostic Radiology: Image personally visualized and interpreted, Report Reviewed by me and Discussed with Physician
CT Scan: Image personally visualized and interpreted, Report Reviewed by me and Discussed with Physician
Labs: Labs Reviewed by me and Discussed with Physician
Old Records: Reviewed
--- NOTE | 2023-04-20 14:13 | W.DS.TRANS ---
DC Summary - Child Welfare Consultant
-
Discharge Instructions:
Discharge Diagnosis/Procedures Small bowel obstruction
Diet Regular
Driving Restrictions As prior to admission
Instructions:
Stand-Alone Forms:
Changes to Home Medications: Yes
Discharge Medications:
DC Medications w/original date entered in [facility]
levothyroxine 25 mcg tablet 25 mcg PO SUMOTUWETHFR@0800 Thyroid 01/01/18
simethicone 80 mg chewable tablet (Gas Relief 80 (simethicone)) 80 mg PO QIDPRN PRN gas pain 02/05/18
Chamomile 2 capsules PO HS Supplement 10/22/18
Multi Mineral 1 tab PO DAILY Supplement 10/22/18
ascorbic acid (vitamin C) 500 mg tablet (Vitamin C) 1,000 mg PO DAILY Supplement 10/22/18
beta carotene 7,500 mcg (25,000 unit) capsule 25,000 unit PO DAILY Supplement 10/22/18
temazepam 30 mg capsule (Restoril) 30 mg PO HS Sleep 10/22/18
vitamin E 268 mg (400 unit) capsule 1,200 unit PO DAILY Supplement 10/22/18
Multi B Vitamin 1 tab PO DAILY Supplement 04/19/23
celecoxib 100 mg capsule 100 mg PO BID PRN mild pain 04/19/23
cholecalciferol (vitamin D3) 125 mcg (5,000 unit) tablet 250 mcg PO DAILY Supplement 04/19/23
clomipramine 75 mg capsule 75 mg PO HS Mental Health/Anxiety 04/19/23
cyanocobalamin (vitamin B-12) 5,000 mcg sublingual tablet 10,000 mcg sublingual DAILY Supplement 04/19/23
docusate sodium 100 mg capsule 200 - 300 mg PO HS Constipation 04/19/23
fluticasone propionate 50 mcg/actuation nasal spray,suspension 2 spray intranasal BIDPRN PRN allergies 04/19/23
gabapentin 600 mg tablet 1,200 mg PO HS Pain 04/19/23
ibuprofen 200 mg tablet 400 mg PO TIDPRN PRN mild pain 04/19/23
ibuprofen 200 mg tablet 600 mg PO DAILYPRN PRN mild pain 04/19/23
levothyroxine 25 mcg tablet 50 mcg PO SA@0800 Thyroid 04/19/23
lisinopril 10 mg tablet 10 mg PO DAILY Blood Pressure 04/19/23
lorazepam 1 mg tablet 1 mg PO HS PRN anxiety 04/19/23
magnesium citrate 100 mg tablet 500 mg PO HS Supplement 04/19/23
melatonin 3 mg tablet 3 mg PO HS Sleep 04/19/23
naproxen sodium 220 mg tablet (Aleve) 440 mg PO BID PRN mild pain 04/19/23
omega 5-hdq-ybk-fish oil 1,000 mg (120 mg-180 mg) capsule (Fish Oil) 2 cap PO DAILY Supplement 04/19/23
ondansetron 8 mg disintegrating tablet 8 mg PO Q8H PRN nausea/vomiting 04/19/23
polyethylene glycol 3350 17 gram oral powder packet (Miralax) 17 g PO DAILY Constipation 04/19/23
polyethylene glycol 3350 17 gram oral powder packet (Miralax) 17 g PO DAILY PRN constipation 04/19/23
pyridoxine (vitamin B6) 1 cap PO DAILY Supplement 04/19/23
ropinirole 4 mg tablet 4 mg PO HS Neurological Condition 04/19/23
tadalafil 20 mg tablet 20 mg PO DAILY PRN ED 04/19/23
zaleplon 10 mg capsule 10 mg PO HS PRN insomnia 04/19/23
zinc 15 mg tablet 30 mg PO DAILY Supplement 04/19/23
Home Medication Changes
Pending Results: Yes
--- NOTE | 2023-04-20 14:13 | W.DCSUMMARY ---
Documented by User: Ayo Funes MD, Resident 04/20/23 14:34
Discharge Summary
Discharge Data
Date of Admission: 04/19/23
Date of Discharge: 04/20/23
-
Pending Results: No
Hospital Course
Patient is a 78-year-old male with past medical history of multiple abdominal surgeries and recurrent constipation, s/p open bilateral inguinal hernias, s/p robotic prostatectomy, s/p urethroplasty who presented to the hospital complaining of severe
generalized abdominal pain and inability to pass flatus with persistent nausea but no vomiting. He denied fever, chills, headache, shortness of breath, and urinary symptoms. While in the ED, workup showed distal small bowel obstruction with
distended abdomen and hypoactive bowel sounds. There was no clinical signs of bowel perforation on CT scan and chest x-ray.
Patient was seen in consultation with surgery, and gastroenterology. His CT scan of abdomen and pelvis was significant for distal small bowel obstruction large volume feces with no identifiable transition zones suggesting constipation versus
adhesions. NG tube was placed in the ED and patient was admitted for observation and further management. Patient was also treated bowel regimen, IV fluid with subsequent large-volume bowel movements and significant relief of symptoms. Patient
remains afebrile with normal white count with resolution of abdominal pain. NG tube was clamped and subsequently removed and diet was advanced from clear diet to low residue which were well-tolerated by the patient. Patient is now being discharged
home, and is hemodynamically stable, with no symptoms of abdominal pain, nausea, diarrhea, fever, or chills. Patient is advised to restart his bowel regimen with MiraLAX twice daily by mouth, magnesium citrate and Colace. Patient is advised to
return to the hospital if symptoms return and continue to follow-up with outpatient GI doctor.
Discharge Plan
-
Patient Disposition: Home (Routine Discharge)
Discharge Diagnosis/Procedures: Small bowel obstruction
Condition: Fair
Diet: Regular
Driving Restrictions: As prior to admission
Referrals:
Linn Gutierrez MD [Family Provider] -
Additional Discharge Medication Instructions: Take MiraLAX by mouth twice daily with your magnesium and Colace.
Prescriptions:
Continued
levothyroxine 25 MCG tablet
25 mcg PO SUMOTUWETHFR@0800
simethicone [Gas Relief 80 (simethicone)] 80 MG tablet,chewable
80 mg PO QIDPRN PRN (Reason: gas pain) 0RF
beta carotene 25,000 UNIT capsule
25,000 unit PO DAILY
ascorbic acid (vitamin C) [Vitamin C] 500 MG tablet
1,000 mg PO DAILY
temazepam [Restoril] 30 MG capsule
30 mg PO HS
Patient Comments:
04/19/2023, pt. filled this med. on 03/17/2023 for 90 capsules per PDMP.
vitamin E 400 UNIT capsule
1,200 unit PO DAILY
Chamomile
2 capsules PO HS
Multi Mineral
1 tab PO DAILY
zinc 15 mg Tablet
30 mg PO DAILY
gabapentin 600 mg Tablet
1,200 mg PO HS
polyethylene glycol 3350 [Miralax] 17 gram Powder In Packet
17 g PO DAILY
polyethylene glycol 3350 [Miralax] 17 gram Powder In Packet
17 g PO DAILY PRN (Reason: constipation)
clomipramine 75 mg Capsule
75 mg PO HS
melatonin 3 mg Tablet
3 mg PO HS
ondansetron 8 mg Tablet,Disintegrating
8 mg PO Q8H PRN (Reason: nausea/vomiting)
levothyroxine 25 mcg Tablet
50 mcg PO SA@0800
lisinopril 10 mg Tablet
10 mg PO DAILY
naproxen sodium [Aleve] 220 mg Tablet
440 mg PO BID PRN (Reason: mild pain)
ibuprofen 200 mg Tablet
400 mg PO TIDPRN PRN (Reason: mild pain)
ibuprofen 200 mg Tablet
600 mg PO DAILYPRN PRN (Reason: mild pain)
docusate sodium 100 mg Capsule
200 - 300 mg PO HS
zaleplon 10 mg Capsule
10 mg PO HS PRN (Reason: insomnia)
Patient Comments:
04/19/2023, pt. filled this med. on 03/03/2023 for 90 capsules per PDMP.
lorazepam 1 mg Tablet
1 mg PO HS PRN (Reason: anxiety)
Patient Comments:
04/19/2023, pt. filled this med. on 02/04/2023 for 90 tablets per PDMP.
celecoxib 100 mg Capsule
100 mg PO BID PRN (Reason: mild pain)
fluticasone propionate 50 mcg/actuation [place],Suspension
2 spray INTRANASAL BIDPRN PRN (Reason: allergies)
ropinirole 4 mg Tablet
4 mg PO HS
tadalafil 20 mg Tablet
20 mg PO DAILY PRN (Reason: ED)
cholecalciferol (vitamin D3) 125 mcg (5,000 unit) Tablet
250 mcg PO DAILY
omega 9-olu-ruu-fish oil [Fish Oil] 1,000 mg (120 mg-180 mg) Capsule
2 cap PO DAILY
cyanocobalamin (vitamin B-12) 5,000 mcg Tablet, Sublingual
10,000 mcg SUBLINGUAL DAILY
Patient Comments:
04/19/2023, per pt., they take 10,000 units SL daily of the hydroxy form of this vitamin as pt. does not absorb vitamin B.
magnesium citrate 100 mg Tablet
500 mg PO HS
Multi B Vitamin
1 tab PO DAILY
Patient Comments:
04/19/2023, per pt., they use hydroxyl form because they do not absorb vitamin B.
pyridoxine (vitamin B6)
1 cap PO DAILY
Patient Comments:
04/19/2023, per pt., they use hydroxyl form because they do not absorb vitamin B.
Discharge Orders:
Discharge Patient (As Directed); Ordered 04/20/23
Ordered By: Ayo Funes
Discharge Date and Time
Discharge Date/Time: 04/20/23 15:52

Documented by User: Johnny Minor MD 04/20/23 17:00
Discharge Summary
Discharge Data
Date of Admission: 04/19/23
Date of Discharge: 04/20/23
Discharge Plan
-
Patient Disposition: Home (Routine Discharge)
Discharge Diagnosis/Procedures: Small bowel obstruction
Condition: Fair
Diet: Regular
Driving Restrictions: As prior to admission
Referrals:
Linn Gutierrez MD [Family Provider] -
Additional Discharge Medication Instructions: Take MiraLAX by mouth twice daily with your magnesium and Colace.
Prescriptions:
Continued
levothyroxine 25 MCG tablet
25 mcg PO SUMOTUWETHFR@0800
simethicone [Gas Relief 80 (simethicone)] 80 MG tablet,chewable
80 mg PO QIDPRN PRN (Reason: gas pain) 0RF
beta carotene 25,000 UNIT capsule
25,000 unit PO DAILY
ascorbic acid (vitamin C) [Vitamin C] 500 MG tablet
1,000 mg PO DAILY
temazepam [Restoril] 30 MG capsule
30 mg PO HS
Patient Comments:
04/19/2023, pt. filled this med. on 03/17/2023 for 90 capsules per PDMP.
vitamin E 400 UNIT capsule
1,200 unit PO DAILY
Chamomile
2 capsules PO HS
Multi Mineral
1 tab PO DAILY
zinc 15 mg Tablet
30 mg PO DAILY
gabapentin 600 mg Tablet
1,200 mg PO HS
polyethylene glycol 3350 [Miralax] 17 gram Powder In Packet
17 g PO DAILY
polyethylene glycol 3350 [Miralax] 17 gram Powder In Packet
17 g PO DAILY PRN (Reason: constipation)
clomipramine 75 mg Capsule
75 mg PO HS
melatonin 3 mg Tablet
3 mg PO HS
ondansetron 8 mg Tablet,Disintegrating
8 mg PO Q8H PRN (Reason: nausea/vomiting)
levothyroxine 25 mcg Tablet
50 mcg PO SA@0800
lisinopril 10 mg Tablet
10 mg PO DAILY
naproxen sodium [Aleve] 220 mg Tablet
440 mg PO BID PRN (Reason: mild pain)
ibuprofen 200 mg Tablet
400 mg PO TIDPRN PRN (Reason: mild pain)
ibuprofen 200 mg Tablet
600 mg PO DAILYPRN PRN (Reason: mild pain)
docusate sodium 100 mg Capsule
200 - 300 mg PO HS
zaleplon 10 mg Capsule
10 mg PO HS PRN (Reason: insomnia)
Patient Comments:
04/19/2023, pt. filled this med. on 03/03/2023 for 90 capsules per PDMP.
lorazepam 1 mg Tablet
1 mg PO HS PRN (Reason: anxiety)
Patient Comments:
04/19/2023, pt. filled this med. on 02/04/2023 for 90 tablets per PDMP.
celecoxib 100 mg Capsule
100 mg PO BID PRN (Reason: mild pain)
fluticasone propionate 50 mcg/actuation [place],Suspension
2 spray INTRANASAL BIDPRN PRN (Reason: allergies)
ropinirole 4 mg Tablet
4 mg PO HS
tadalafil 20 mg Tablet
20 mg PO DAILY PRN (Reason: ED)
cholecalciferol (vitamin D3) 125 mcg (5,000 unit) Tablet
250 mcg PO DAILY
omega 3-wzj-fut-fish oil [Fish Oil] 1,000 mg (120 mg-180 mg) Capsule
2 cap PO DAILY
cyanocobalamin (vitamin B-12) 5,000 mcg Tablet, Sublingual
10,000 mcg SUBLINGUAL DAILY
Patient Comments:
04/19/2023, per pt., they take 10,000 units SL daily of the hydroxy form of this vitamin as pt. does not absorb vitamin B.
magnesium citrate 100 mg Tablet
500 mg PO HS
Multi B Vitamin
1 tab PO DAILY
Patient Comments:
04/19/2023, per pt., they use hydroxyl form because they do not absorb vitamin B.
pyridoxine (vitamin B6)
1 cap PO DAILY
Patient Comments:
04/19/2023, per pt., they use hydroxyl form because they do not absorb vitamin B.
Discharge Orders:
Discharge Patient (As Directed); Ordered 04/20/23
Ordered By: Ayo Funes
Discharge Date and Time
Discharge Date/Time: 04/20/23 15:52
--- NOTE | 2023-04-20 14:43 | CM ---
Alert awake oriented patient who lives alone in a 1 story home with 2 and bed and bathroom on first floor. He is independent in driving and in all activities of daily living.He was offered VN he declined need.Tolerating diet. He requested SO
information placed in his chart. Adrienne Mart [phone]. Admission notified to add to chart. Discharge entered. Pt ready for dc . Luisa will drive him home.
No VN hx / No SNF history
Pharmacy [facility]
PCP DR Gutierrez
PLAN Home declined needs
[2023-04-20] MEDS: ZESTRIL 10 MG PO (14:48)
== END 2023-04-20 15:52 | disposition home or self-care (01) | DRG 390 ==
LOC: 3 WEST ACU 06:41
PROVIDERS: ADMITTING PHYSICIAN Internal Medicine; ATTENDING PHYSICIAN Internal Medicine; CONSULT PHYSICIAN Internal Medicine Gastroenterology; CONSULT PHYSICIAN Surgery; EMERGENCY PHYSICIAN Emergency Medicine; FAMILY PHYSICIAN Family Medicine
PROC: 0D9670Z Drainage of Stomach with Drainage Device, Via Natural or Artificial Opening (ICD-10-PCS; 2023-04-19)
DX: K56.690 Other partial intestinal obstruction (principal); I10 Essential (primary) hypertension; G25.81 Restless legs syndrome; E03.9 Hypothyroidism, unspecified
CPT/HCPCS: 43752; 71045; 74018; 74177; 80048; 80053; 81003; 82378; 83605; 83690; 83735; 84443; 85025; 93005; 96361; 96374; 96375; 99285; Q9967

== ENCOUNTER → 2023-09-07 10:19 | Outpatient (REF) | payer MEDICARE, BC, SELFPAY ==
[2023-09-07 11:34] LABS: % Basophils 0.7 % (0-2); % Eosinophils 3.8 % (0-6); % Immature Granulocytes 0.2 % (0-0.5); % Lymphocytes 6.8 % (20.5-51.1); % Monocytes 12.3 % (1.7-9.3); % Neutrophils 76.2 % (42.2-75.2); Absolute Eosinophils 0.2 10^3/uL (0-0.7); Absolute Lymphocytes 0.4 10^3/uL (1.2-3.4); Absolute Monocytes 0.7 10^3/uL (0.1-0.6); Absolute Neutrophils 4.3 10^3/uL (1.4-6.5); Hematocrit 43.5 % (39.0-52.0); Hemoglobin 14.6 g/dL (13.0-18.0); Mean Corp Hgb Conc. 33.6 g/dL (33.0-37.0); Mean Corpuscular Volume 86.5 fL (80.0-94.0); Mean Platelet Volume 9.7 fL (7.4-10.4); Nucleated Red Blood Cells % 0 % (-); Platelet Count 363 10^3/uL (130-400); Red Blood Cell Count 5.03 10^6/uL (4.70-6.10); Red Cell Dist. Width 14.4 % (11.5-14.5); White Blood Cell Count 5.6 10^3/uL (4.8-10.8)
[2023-09-07 12:38] LABS: Glycohemoglobin (HgbA1c) 6.3 % (4.0-5.6)
== END ==
LOC: REG 10:19
PROVIDERS: ATTENDING PHYSICIAN Family Medicine
DX: R73.03 Prediabetes (principal); D72.810 Lymphocytopenia
CPT/HCPCS: 36415; 83036; 85025

== ENCOUNTER → 2023-11-17 13:43 | Outpatient (REF) | payer MEDICARE, BC, SELFPAY | LOC: EMG 13:43 | PROVIDERS: ATTENDING PHYSICIAN Psychiatry & Neurology Sleep Medicine; FAMILY PHYSICIAN Family Medicine | DX: M54.16 Radiculopathy, lumbar region (principal) | CPT/HCPCS: 95886; 95911 ==

== ENCOUNTER → 2023-11-23 07:20 | Outpatient (REF) | payer MEDICARE, BC, SELFPAY | LOC: EMG 07:20 | PROVIDERS: ATTENDING PHYSICIAN Psychiatry & Neurology Sleep Medicine; FAMILY PHYSICIAN Family Medicine | DX: R20.0 Anesthesia of skin (principal) | CPT/HCPCS: 95886; 95911 ==

== ENCOUNTER → 2024-01-25 07:21 | Outpatient (REF) | payer MEDICARE, BC, SELFPAY | LOC: RAD 07:21 | PROVIDERS: ATTENDING PHYSICIAN Family Medicine | DX: R20.9 Unspecified disturbances of skin sensation (principal) | CPT/HCPCS: 93922; 93925 ==

== ENCOUNTER → 2024-02-01 09:22 | Outpatient (REF) | payer MEDICARE, BC, SELFPAY | LOC: RAD 09:22 | PROVIDERS: ATTENDING PHYSICIAN Family Medicine | DX: R20.9 Unspecified disturbances of skin sensation (principal) | CPT/HCPCS: 93923; 93930 ==

== ENCOUNTER → 2024-02-22 14:39 | Outpatient (REF) | payer MEDICARE, BC, SELFPAY ==
[2024-02-22 15:38] LABS: % Basophils 0.6 % (0-2); % Eosinophils 2.8 % (0-6); % Immature Granulocytes 0.2 % (0-0.5); % Monocytes 12.5 % (1.7-9.3); % Neutrophils 78.9 % (42.2-75.2); Absolute Eosinophils 0.1 10^3/uL (0-0.7); Absolute Lymphocytes 0.3 10^3/uL (1.2-3.4); Absolute Monocytes 0.6 10^3/uL (0.1-0.6); Hematocrit 46.2 % (39.0-52.0); Hemoglobin 15.3 g/dL (13.0-18.0); Mean Corp Hgb Conc. 33.1 g/dL (33.0-37.0); Mean Corpuscular Hgb 29.8 pg (27.0-31.0); Mean Corpuscular Volume 89.9 fL (80.0-94.0); Mean Platelet Volume 10.2 fL (7.4-10.4); Nucleated Red Blood Cells % 0 % (-); Platelet Count 297 10^3/uL (130-400); Red Blood Cell Count 5.14 10^6/uL (4.70-6.10); Red Cell Dist. Width 13.9 % (11.5-14.5)
[2024-02-22 15:59] LABS: Blood Urea Nitrogen 29 mg/dl (9-20); Calcium 9.8 mg/dl (8.4-10.2); Carbon Dioxide 32 mmol/L (22-30); Chloride 100 mmol/L (98-107); Glucose 88 mg/dl (70-99); Potassium 5.1 mmol/L (3.5-5.1); Sodium 138 mmol/L (135-145); eGFR > 60.00
== END ==
LOC: REG 14:39
PROVIDERS: ATTENDING PHYSICIAN Nurse Practitioner Family
DX: Z01.818 Encounter for other preprocedural examination (principal)
CPT/HCPCS: 36415; 80048; 85025

== ENCOUNTER → 2024-03-08 08:55 | Outpatient (REF) | payer MEDICARE, BC, SELFPAY ==
[2024-03-08 09:31] LABS: % Basophils 0.7 % (0-2); % Eosinophils 4.8 % (0-6); % Immature Granulocytes 0.3 % (0-0.5); % Lymphocytes 6.3 % (20.5-51.1); % Monocytes 11.2 % (1.7-9.3); % Neutrophils 76.7 % (42.2-75.2); Absolute Eosinophils 0.3 10^3/uL (0-0.7); Absolute Lymphocytes 0.4 10^3/uL (1.2-3.4); Absolute Monocytes 0.7 10^3/uL (0.1-0.6); Absolute Neutrophils 4.7 10^3/uL (1.4-6.5); Hematocrit 47.2 % (39.0-52.0); Hemoglobin 15.5 g/dL (13.0-18.0); Mean Corp Hgb Conc. 32.8 g/dL (33.0-37.0); Mean Corpuscular Hgb 29.5 pg (27.0-31.0); Mean Corpuscular Volume 89.7 fL (80.0-94.0); Nucleated Red Blood Cells % 0 % (-); Platelet Count 289 10^3/uL (130-400); Red Blood Cell Count 5.26 10^6/uL (4.70-6.10); Red Cell Dist. Width 13.7 % (11.5-14.5); White Blood Cell Count 6.1 10^3/uL (4.8-10.8)
[2024-03-08 10:30] LABS: ALT (SGPT) 91 U/L (0-50); AST (SGOT) 71 U/L (17-59); Albumin 3.7 g/dl (3.5-5.0); Alkaline Phosphatase 79 U/L (38-126); Blood Urea Nitrogen 27 mg/dl (9-20); Calcium 9.2 mg/dl (8.4-10.2); Carbon Dioxide 30 mmol/L (22-30); Chloride 101 mmol/L (98-107); Glucose 112 mg/dl (70-99); HDL Cholesterol 48 mg/dl; LDL Cholesterol, Calculated 115 mg/dl; Potassium 4.9 mmol/L (3.5-5.1); Sodium 137 mmol/L (135-145); Total Bilirubin 0.4 mg/dl (0.2-1.3); Total Cholesterol 181 mg/dl (50-199); Total Protein 5.9 g/dl (6.3-8.2); Triglyceride 94 mg/dl (10-149); Very Low Density Lipoprotein 18 mg/dl (0-30); eGFR > 60.00
[2024-03-08 10:32] LABS: TSH Reflex To Free T4 3.65 uIU/ml (0.47-4.68)
[2024-03-08 11:30] LABS: Glycohemoglobin (HgbA1c) 5.9 % (4.0-5.6)
== END ==
LOC: REG 08:55
PROVIDERS: ATTENDING PHYSICIAN Family Medicine
DX: R73.03 Prediabetes (principal); E03.9 Hypothyroidism, unspecified; I10 Essential (primary) hypertension; D72.810 Lymphocytopenia
CPT/HCPCS: 36415; 80053; 80061; 83036; 84443; 85025

== ENCOUNTER → 2024-05-23 16:45 | Outpatient (REF) | payer MEDICARE, BC, SELFPAY ==
[2024-05-23 18:03] LABS: ALT (SGPT) 58 U/L (0-50); AST (SGOT) 53 U/L (17-59); Albumin 4.6 g/dl (3.5-5.0); Alkaline Phosphatase 119 U/L (38-126); Blood Urea Nitrogen 27 mg/dl (9-20); Calcium 10.2 mg/dl (8.4-10.2); Carbon Dioxide 28 mmol/L (22-30); Chloride 103 mmol/L (98-107); Glucose 109 mg/dl (70-99); Potassium 4.7 mmol/L (3.5-5.1); Sodium 139 mmol/L (135-145); Total Bilirubin 0.7 mg/dl (0.2-1.3); Total Protein 6.9 g/dl (6.3-8.2); eGFR > 60.00
[2024-05-23 18:06] LABS: C-Reactive Protein < 5.00 mg/L (0.0-10.00)
[2024-05-23 18:22] LABS: Free T4 1.03 ng/dl (0.78-2.19)
[2024-05-23 18:36] LABS: TSH 1.81 uIU/ml (0.47-4.68)
[2024-05-23 18:55] LABS: Vitamin B12 > 1000 pg/ml (239-931)
[2024-05-24 10:57] LABS: Rheumatoid Agglutinin Less Than 10 IU (<10 IU)
[2024-05-26 06:17] LABS: ANA, IgG Reflex to HEp-2 None Detected (None Detected)
== END ==
LOC: REG 16:45
PROVIDERS: ATTENDING PHYSICIAN Family Medicine
DX: G62.9 Polyneuropathy, unspecified (principal); E53.8 Deficiency of other specified B group vitamins; R79.89 Other specified abnormal findings of blood chemistry; E11.9 Type 2 diabetes mellitus without complications; I10 Essential (primary) hypertension
CPT/HCPCS: 36415; 80053; 82607; 84439; 84443; 86038; 86140; 86430

== ENCOUNTER → 2024-06-12 12:04 | Outpatient (REF) | payer MEDICARE, BC, SELFPAY ==
[2024-06-12 13:01] LABS: % Basophils 0.3 % (0-2); % Eosinophils 2.1 % (0-6); % Immature Granulocytes 0.4 % (0-0.5); % Lymphocytes 4.5 % (20.5-51.1); % Monocytes 10.7 % (1.7-9.3); Absolute Eosinophils 0.1 10^3/uL (0-0.7); Absolute Lymphocytes 0.3 10^3/uL (1.2-3.4); Absolute Monocytes 0.7 10^3/uL (0.1-0.6); Absolute Neutrophils 5.5 10^3/uL (1.4-6.5); Hematocrit 42.9 % (39.0-52.0); Hemoglobin 14.4 g/dL (13.0-18.0); Mean Corp Hgb Conc. 33.6 g/dL (33.0-37.0); Mean Corpuscular Hgb 30.1 pg (27.0-31.0); Mean Corpuscular Volume 89.7 fL (80.0-94.0); Mean Platelet Volume 10.3 fL (7.4-10.4); Nucleated Red Blood Cells % 0 % (-); Platelet Count 237 10^3/uL (130-400); Red Blood Cell Count 4.78 10^6/uL (4.70-6.10); Red Cell Dist. Width 13.5 % (11.5-14.5); White Blood Cell Count 6.7 10^3/uL (4.8-10.8)
[2024-06-12 13:13] LABS: Urine Albumin 1+ (Neg - Trace); Urine Bilirubin Negative (Negative); Urine Character Clear (Clear); Urine Color Yellow; Urine Glucose Negative (Negative); Urine Ketone Negative (Negative); Urine Leukocyte Negative (Negative); Urine Nitrite Negative (Negative); Urine Occult Blood Negative (Negative); Urine Specific Gravity 1.025 (<1.030); Urine Urobilinogen Negative (Neg - 1+)
[2024-06-12 13:20] LABS: Erythrocyte Sed Rate 2 mm/hour (0-20)
[2024-06-12 13:27] LABS: ALT (SGPT) 40 U/L (0-50); AST (SGOT) 32 U/L (17-59); Albumin 3.7 g/dl (3.5-5.0); Alkaline Phosphatase 81 U/L (38-126); Direct Bilirubin 0.2 mg/dl (0.0-0.4); Total Bilirubin 0.5 mg/dl (0.2-1.3); Total Protein 5.8 g/dl (6.3-8.2)
[2024-06-12 13:42] LABS: Urine Mucus Few
[2024-06-12 13:43] LABS: Urine Bacteria Few (Negative); Urine Red Blood Cell 0-2 /HPF (0-2)
[2024-06-12 13:52] LABS: Hepatitis B Surface Antigen Negative (Negative)
[2024-06-12 13:54] LABS: Creatine Phosphokinase 181 U/L (55-170)
[2024-06-12 14:10] LABS: Hepatitis B Core Ab, Total Negative (Negative); Hepatitis C Antibody Negative (Negative)
[2024-06-14 20:53] LABS: Aldolase 7.2 U/L (1.2-7.6)
[2024-06-15 01:13] LABS: ANA, IgG Reflex to HEp-2 None Detected (None Detected)
[2024-06-15 02:16] LABS: SSA 52 (Ro)(ENA) Ab, IgG 3 AU/mL (0-40); SSA 60 (Ro)(ENA) Ab, IgG 0 AU/mL (0-40); SSB (La)(ENA) Ab, IgG 0 AU/mL (0-40)
== END ==
LOC: REG 12:04
PROVIDERS: ATTENDING PHYSICIAN Physician Assistant; FAMILY PHYSICIAN Family Medicine
DX: G56.03 Carpal tunnel syndrome, bilateral upper limbs (principal); M54.31 Sciatica, right side; M54.32 Sciatica, left side; R53.1 Weakness; R94.5 Abnormal results of liver function studies
CPT/HCPCS: 36415; 80076; 81003; 81015; 82085; 82550; 84155; 84165; 85025; 85652; 86038; 86235; 86704; 86803; 87340

== ENCOUNTER → 2024-06-27 16:03 | Outpatient (REF) | payer MEDICARE, BC, SELFPAY ==
[2024-06-27 16:51] LABS: Protein/creatinine Ratio 0.3; Urine Protein 11 mg/dl
== END ==
LOC: REG 16:03
PROVIDERS: ATTENDING PHYSICIAN Internal Medicine Rheumatology; FAMILY PHYSICIAN Family Medicine
DX: R80.9 Proteinuria, unspecified (principal)
CPT/HCPCS: 82570; 84156

== ENCOUNTER → 2024-07-17 13:14 | Outpatient (REF) | payer MEDICARE, BC, SELFPAY | LOC: RAD 13:14 | PROVIDERS: ATTENDING PHYSICIAN Registered Nurse; FAMILY PHYSICIAN Family Medicine | DX: R60.0 Localized edema (principal); I73.00 Raynaud's syndrome without gangrene; M79.89 Other specified soft tissue disorders | CPT/HCPCS: 93922; 93970 ==

== ENCOUNTER → 2024-07-18 14:54 | Outpatient (REF) | payer MEDICARE, BC, SELFPAY | LOC: RAD 14:54 | PROVIDERS: ATTENDING PHYSICIAN Anesthesiology; FAMILY PHYSICIAN Family Medicine | DX: M53.2X6 Spinal instabilities, lumbar region (principal) | CPT/HCPCS: 72114 ==

== ENCOUNTER 2024-08-02 12:53 | Outpatient (REF) | payer MEDICARE, BC, SELFPAY ==
[2024-08-02 13:30] VITALS: BP 120/75; BP_SYST 62
[2024-08-02 13:40] LABS: PT 13.5 Sec (11.4-14.6)
[2024-08-02 14:45] VITALS: BP 127/75; BP_SYST 72
[2024-08-02 15:15] VITALS: BP 130/81
[2024-08-02 15:39] LABS: Spinal Fluid Glucose 67 mg/dl (40-70); Spinal Fluid Protein 103 mg/dl (12-60)
[2024-08-02 16:07] LABS: CSF Clarity Clear; CSF Tube # 1
[2024-08-02 16:08] LABS: CSF Color Other; Red Cell Count/CSF 992 mm^3; White Cell Count/CSF 2 mm^3 (0-5)
[2024-08-02 16:09] LABS: CSF Color Colorless; CSF Tube # 4; CSF Tube # Clarity Clear; Red Cell Count/CSF 31 mm^3; White Blood Cell Count/CSF 2 mm^3 (0-5)
[2024-08-04 23:53] LABS: Angiotensin-1- Converting, CSF 1.1 U/L (0.0-2.5)
[2024-08-06 16:18] LABS: CSF VDRL (T. pallidum) Non Reactive (Non Reactive)
[2024-08-07 01:38] LABS: Lyme Disease DNA by PCR Not Detected; Lyme Source CSF
== END 2024-08-02 16:30 | disposition home or self-care (01) ==
LOC: RADI 12:53
PROVIDERS: ATTENDING PHYSICIAN Specialist; FAMILY PHYSICIAN Family Medicine; OTHER PHYSICIAN Physician Assistant
DX: R53.1 Weakness (principal)
CPT/HCPCS: 36415; 62328; 82164; 82945; 84157; 85610; 86592; 86780; 87476; 88108; 89051

== ENCOUNTER 2024-10-07 17:31 | Emergency (ER) | payer MEDICARE, BC, SELFPAY ==
[2024-10-07 17:38] VITALS: BP 122/73
[2024-10-07 17:42] VITALS: BMI 24.7
[2024-10-07 17:55] LABS: Hematocrit 41.5 % (39.0-52.0); Hemoglobin 14.0 g/dL (13.0-18.0); Mean Corp Hgb Conc. 33.7 g/dL (33.0-37.0); Mean Corpuscular Volume 87.4 fL (80.0-94.0); Nucleated Red Blood Cells % 0 % (-); Platelet Count 230 10^3/uL (130-400); Red Cell Dist. Width 13.3 % (11.5-14.5)
[2024-10-07 18:00] VITALS: BP 132/84
[2024-10-07 18:06] LABS: ALT (SGPT) 43 U/L (0-50); AST (SGOT) 35 U/L (17-59); Albumin 3.7 g/dl (3.5-5.0); Alkaline Phosphatase 83 U/L (38-126); Blood Urea Nitrogen 16 mg/dl (9-20); Calcium 9.6 mg/dl (8.4-10.2); Carbon Dioxide 28 mmol/L (22-30); Chloride 106 mmol/L (98-107); Estimated Creatinine Clearance 100 ml/min; Glucose 181 mg/dl (70-99); Potassium 4.1 mmol/L (3.5-5.1); Sodium 136 mmol/L (135-145); Total Protein 5.9 g/dl (6.3-8.2); eGFR > 60.00
[2024-10-07 18:07] LABS: COVID-19 Antigen Negative (Negative)
[2024-10-07 18:16] LABS: Urine Character Clear (Clear)
--- NOTE | 2024-10-07 18:51 | ED.GENMED ---
History of Present Illness
General
Chief Complaint: Weakness
Source: patient
Exam Limitations: none
Time Seen by Provider: 10/07/24 18:34
Nursing documentation reviewed up to this point in time: agreed with
History of Present Illness
History of Present Illness:
Patient is a 79-year-old male with pmh axial polyneuropathy,(demyelinating polyneuritis) IBS, small bowel OBS robotic prostatectomy presents to the ER for evaluation. Patient reports for the 7-10 days he has had COVID symptoms. He had a lot of
upper respiratory symptoms however that has since resolved but now he feels generally weak. He also had a lot of constipation and has not moved his bowels in the past 3 days. He is concerned as he has a history of by obstruction in the past. He
has on MiraLAX and colare and tried but could not administer himself an enema. He denies any nausea vomiting recent fever chills
Past History
Past History
ED Past Medical History: Cancer (Prostate CA), HTN, NIDDM (Diet controlled), Hypothyroidism, Psychiatric and Other (Chronic constipation, Colitis, Cellulitis, IBS)
ED Past Surgical History: Other (Hernia repair)
Social History
Tobacco: Non-smoker
Alcohol: None
Drug: Marijuana
Personal:
Living: alone
Employment: Retired
Family History
Family History: Other (Noncontributory)
Phy Exam
General Physical Exam
General Presentation: no apparent distress
General age: appears stated age
General Skin: warm and dry
General Habitus: normal
General Mental: alert
General Hydration: appears well hydrated
Cardiovascular Exam
Cardiovascular Exam: regular rate/rhythm, no murmur and normal peripheral pulses
Pulmonary Exam
Pulmonary Exam: lungs clear and no respiratory distress
Neurological Exam
Neurological Exam: alert and oriented x3
Musculoskeletal Exam
Musculoskeletal Exam: full ROM
Skin Exam
Skin Exam: normal color and warm/dry
Psychiatric Exam
Psychiatric Exam: normal mood/affect
Course
Orders/Labs/Results
Orders:
Orders
10/07/24 17:37
Electrocardiogram (*1) Urgent
Reason for Study: Vertigo / Dizzy
EKG- Treatment ONCE
CR Chest - 2 Views Urgent
Comment:
Reason For Exam: shortness of breath
10/07/24 17:44
COVID-19 Antigen Urgent
Source: Nasal Swab
Complete Blood Count/With Diff Urgent
Comprehensive Metabolic Panel Urgent
Influenza A+B Rapid Molecular Urgent
MAO Source: Nasal Swab
Specimen Description:
10/07/24 18:03
Urinalysis Reflex To Culture Urgent
Date Specimen was Collected: 10/07/24
Time Specimen was Collected: 17:57
10/07/24 19:52
CT Abd/pelvis W Iv Cont Urgent
Comment:
Reason For Exam: constipation
10/07/24 22:10
0.9% Sodium Chloride 1000 ml [Nss] 1,000 ml IV BOLUS
Abnormal Lab Results
10/07/24
17:44
WBC 4.4 L 10^3/uL
(4.8-10.8)
Absolute Lymphs (auto) 0.2 L 10^3/uL
(1.2-3.4)
Immature Gran % 0.7 H %
(0-0.5)
Neutrophils % 82.0 H %
(42.2-75.2)
Lymphocytes % 5.2 L %
(20.5-51.1)
Monocytes % 9.8 H %
(1.7-9.3)
Creatinine 0.6 L mg/dL
(0.7-1.3)
Glucose 181 H mg/dl
(70-99)
Total Protein 5.9 L g/dl
(6.3-8.2)
10/07/24 17:44
10/07/24 17:44
Vital Signs
Initial and Last Documented VS:
Initial Vital Signs
Temp Pulse Resp BP Pulse Ox
98.5 F 70 16 122/73 95
10/07/24 17:38 10/07/24 17:38 10/07/24 17:38 10/07/24 17:38 10/07/24 17:38
Last Documented Vital Signs
Temp Pulse Resp BP Pulse Ox
98.6 F 66 15 103/72 96
10/07/24 23:00 10/07/24 23:00 10/07/24 23:00 10/07/24 23:00 10/07/24 23:00
MDM/Problems Addressed
Differential Diagnosis Includes:
Not limited to covid Related weakness, dehydration, infection UTI obstruction less likely colitis diverticulitis
MDM/Problems Addressed:
As documented patient is a 79-year-old male with recent COVID presents for weakness and constipation. Patient started with symptoms 7 to 10 days ago COVID-negative here in the ER lungs are clear is in no acute distress not hypoxic. chest xray neg.
Patient is afebrile unremarkable chemistries urinalysis negative abdomen soft nontender, CAT scan of abdomen negative for bowel obstruction there is moderate stool suggesting constipation no stercoral colitis. Patient had difficulty giving himself
an enema last night will give an enema here in the ER. Otherwise patient is well-appearing in no acute distress stable for discharge home. Will instruct patient to continue MiraLAX and Colace.
Chronic conditions affecting care:
Demyelinating polyneuritis history of small bowel obstruction constipation history
*Radiology
Radiology exam reviewed: radiology read reviewed
*Pulse Oximetry
SaO2: 96
Oxygen Mode of Delivery: Room air
Patient hypoxic: no
*Critical Care Note
Total Time (30-74mins, 75-104mins- exclusive of procedures): Not Applicable
ED Attending Note
-
Portions of this chart may have been created with voice recognition software.� Occasional wrong word or��sound alike� substitutions may have occurred due to the inherent limitations of voice recognition software.
Discharge Plan
Departure
Patient Disposition: Home (Routine Discharge)
Date of Disposition: 10/07/24
Time of Disposition: 23:31
Patient with high blood pressure during this ER visit?: Yes
Condition: Fair
Covid-19: Not Applicable
Discharge Problem:
Constipation, Fatigue
Instructions: Fatigue (DC), Constipation in adults - ED (DC)
Prescriptions:
No Action
levothyroxine 25 MCG tablet
25 mcg PO SUMOTUWETHFR@0800
simethicone [Gas Relief 80 (simethicone)] 80 MG tablet,chewable
80 mg PO QIDPRN PRN (Reason: gas pain) 0RF
beta carotene 25,000 UNIT capsule
25,000 unit PO DAILY
ascorbic acid (vitamin C) [Vitamin C] 500 MG tablet
1,000 mg PO DAILY
temazepam [Restoril] 30 MG capsule
30 mg PO HS
Patient Comments:
04/19/2023, pt. filled this med. on 03/17/2023 for 90 capsules per PDMP.
vitamin E 400 UNIT capsule
1,200 unit PO DAILY
Chamomile
2 capsules PO HS
Multi Mineral
1 tab PO DAILY
zinc 15 mg Tablet
30 mg PO DAILY
gabapentin 600 mg Tablet
1,200 mg PO HS
polyethylene glycol 3350 [Miralax] 17 gram Powder In Packet
17 g PO DAILY
polyethylene glycol 3350 [Miralax] 17 gram Powder In Packet
17 g PO DAILY PRN (Reason: constipation)
clomipramine 75 mg Capsule
75 mg PO HS
melatonin 3 mg Tablet
3 mg PO HS
ondansetron 8 mg Tablet,Disintegrating
8 mg PO Q8H PRN (Reason: nausea/vomiting)
levothyroxine 25 mcg Tablet
50 mcg PO SA@0800
lisinopril 10 mg Tablet
10 mg PO DAILY
naproxen sodium [Aleve] 220 mg Tablet
440 mg PO BID PRN (Reason: mild pain)
ibuprofen 200 mg Tablet
400 mg PO TIDPRN PRN (Reason: mild pain)
ibuprofen 200 mg Tablet
600 mg PO DAILYPRN PRN (Reason: mild pain)
docusate sodium 100 mg Capsule
200 - 300 mg PO HS
zaleplon 10 mg Capsule
10 mg PO HS PRN (Reason: insomnia)
Patient Comments:
04/19/2023, pt. filled this med. on 03/03/2023 for 90 capsules per PDMP.
lorazepam 1 mg Tablet
1 mg PO HS PRN (Reason: anxiety)
Patient Comments:
04/19/2023, pt. filled this med. on 02/04/2023 for 90 tablets per PDMP.
celecoxib 100 mg Capsule
100 mg PO BID PRN (Reason: mild pain)
fluticasone propionate 50 mcg/actuation [place],Suspension
2 spray INTRANASAL BIDPRN PRN (Reason: allergies)
ropinirole 4 mg Tablet
4 mg PO HS
tadalafil 20 mg Tablet
20 mg PO DAILY PRN (Reason: ED)
cholecalciferol (vitamin D3) 125 mcg (5,000 unit) Tablet
250 mcg PO DAILY
omega 5-dpd-ylo-fish oil [Fish Oil] 1,000 mg (120 mg-180 mg) Capsule
2 cap PO DAILY
cyanocobalamin (vitamin B-12) 5,000 mcg Tablet, Sublingual
10,000 mcg SUBLINGUAL DAILY
Patient Comments:
04/19/2023, per pt., they take 10,000 units SL daily of the hydroxy form of this vitamin as pt. does not absorb vitamin B.
magnesium citrate 100 mg Tablet
500 mg PO HS
Multi B Vitamin
1 tab PO DAILY
Patient Comments:
04/19/2023, per pt., they use hydroxyl form because they do not absorb vitamin B.
pyridoxine (vitamin B6)
1 cap PO DAILY
Patient Comments:
04/19/2023, per pt., they use hydroxyl form because they do not absorb vitamin B.
Referrals:
Linn Gutierrez MD [Family Provider, [facility]]
Activity Restrictions/Additional Instructions:
Continue to use your MiraLAX and Colace. Be sure to get plenty of rest and stay well-hydrated. Your CAT scan was negative for bowel obstruction. You were given an enema here in the ER. Follow-up with your family doctor in next 2 days .
return if any worsening of symptoms.
Interventions
Interventions:
*Risk Screen - Suicide Last Done: 10/07/24 17:38
*General Assessment Last Done: 10/07/24 17:38
*Neglect/Abuse Screening Last Done: 10/07/24 17:38
*ED- Fall Risk Assessment Last Done: 10/07/24 17:44
*ED COVID-19 Vaccine History Last Done: 10/07/24 17:44
ED- Cardiac Assessment Last Done: 10/07/24 17:54
ED- Neurological Assessment Last Done: 10/07/24 17:54
ED- Pulmonary Assessment Last Done: 10/07/24 17:54
Discharge Date and Time
Print Language: PALESTINIAN
[2024-10-07 19:00] VITALS: BP 130/83
[2024-10-07] MEDS: NSS 1000 IV (19:55)
[2024-10-07 23:00] VITALS: BP 103/72
== END 2024-10-07 23:57 | disposition home or self-care (01) ==
LOC: EMR 17:31
PROVIDERS: EMERGENCY PHYSICIAN Emergency Medicine; FAMILY PHYSICIAN Family Medicine
DX: K59.00 Constipation, unspecified (principal); R06.02 Shortness of breath; R42 Dizziness and giddiness; R53.83 Other fatigue; R53.1 Weakness; Z11.52 Encounter for screening for COVID-19; G61.81 Chronic inflammatory demyelinating polyneuritis; K58.9 Irritable bowel syndrome, unspecified; F90.9 Attention-deficit hyperactivity disorder, unspecified type; F41.9 Anxiety disorder, unspecified; F32.A Depression, unspecified; E03.9 Hypothyroidism, unspecified; G47.30 Sleep apnea, unspecified; G25.81 Restless legs syndrome; Z85.46 Personal history of malignant neoplasm of prostate; Z85.828 Personal history of other malignant neoplasm of skin; Z98.890 Other specified postprocedural states; Z90.79 Acquired absence of other genital organ(s); Z88.0 Allergy status to penicillin
CPT/HCPCS: 99285; 96360; 71046; 74177; 80053; 81003; 85025; 87502; 87811; 93005; Q9967

== ENCOUNTER 2024-10-13 13:01 | Emergency (ER) | payer MEDICARE, BC, SELFPAY ==
[2024-10-13 13:04] VITALS: BP 119/76
[2024-10-13 13:27] LABS: Hematocrit 41.7 % (39.0-52.0); Hemoglobin 14.2 g/dL (13.0-18.0); Mean Corp Hgb Conc. 34.1 g/dL (33.0-37.0); Mean Corpuscular Volume 86.9 fL (80.0-94.0); Nucleated Red Blood Cells % 0 % (-); Platelet Count 292 10^3/uL (130-400); Red Cell Dist. Width 13.4 % (11.5-14.5)
[2024-10-13 13:41] LABS: ALT (SGPT) 41 U/L (0-50); AST (SGOT) 33 U/L (17-59); Albumin 3.9 g/dl (3.5-5.0); Alkaline Phosphatase 81 U/L (38-126); Blood Urea Nitrogen 14 mg/dl (9-20); Calcium 9.9 mg/dl (8.4-10.2); Carbon Dioxide 27 mmol/L (22-30); Chloride 107 mmol/L (98-107); Glucose 111 mg/dl (70-99); Potassium 4.4 mmol/L (3.5-5.1); Sodium 138 mmol/L (135-145); Total Protein 6.1 g/dl (6.3-8.2); eGFR > 60.00
[2024-10-13 13:53] LABS: Troponin I 0.014 ng/ml
--- NOTE | 2024-10-13 17:00 | ED.GENMED ---
History of Present Illness
General
Chief Complaint: Fatigue
Time Seen by Provider: 10/13/24 17:00
History of Present Illness
History of Present Illness:
FOCUSED PAST MEDICAL HISTORY
- The patient has a history of high blood pressure, prostate cancer, anxiety/depression.
REVIEW OF OLD RECORDS
- I reviewed records, the patient was seen here 6 days ago in the emergency department and diagnosed with constipation. The patient also was admitted to the hospital last year with a small bowel obstruction.
Note:
CHIEF COMPLAINT(S)
Chills, weakness, shortness of breath, and frequent urination.
HISTORY OF PRESENT ILLNESS
The patient is a 79-year-old male with a recent history of COVID-19 infection, experiencing persistent symptoms. Two weeks ago, he was diagnosed with COVID-19, initially presenting with respiratory symptoms. Over the past week, he reports daily
episodes of chills, weakness, and shortness of breath. Additionally, the patient notes difficulty sleeping and frequent urination, which keeps him awake at night. He denies fever and reports that his symptoms have improved intermittently after
resting, yet tend to return the following day.
PHYSICAL EXAM
- General: Well appearing in no distress
- HEENT: Moist oral mucosa
- Cardiovascular: No murmurs, normal heart rate, regular rhythm, No chest wall tenderness
- Pulmonary: No respiratory distress, breath sounds are clear and equal
- Abdomen: Soft with no peritoneal signs, no tenderness
- Neurologic: Excellent strength all extremities, no coordination deficits, excellent yzlkda-bm-jckg testing
- Psychiatric: Appropriate mental status, normal insight and judgement
- Extremities: Nontender, no edema, moves all extremities equally
- Skin: No rash, no lesions
EXTERNAL RECORDS REVIEWED
According to records from a previous ER visit one week ago, the patient was diagnosed with constipation, confirmed via CT imaging. A chest x-ray performed during that visit was unremarkable.
CHRONIC MEDICAL CONDITIONS SIGNIFICANTLY AFFECTING CARE
Chronic conditions affecting care include a previous history of restless leg syndrome for which he takes Ropinirole, and a neurological condition for which he takes Pregabalin.
INDEPENDENT REVIEW OF LABS AND INTERPRETATION OF TESTS
My independent review of blood work revealed normal white blood cell count, but low lymphocyte count, consistent with prior COVID-19 infection effects. Other labs, including kidney function and electrolyte levels, appeared normal.
PLAN
Recommend oral hydration at home, given the patients adequate hydration status. Suggest trying zxpy-yfo-nqkvjij doxylamine for sleep support, noting the patient could purchase on the way home for trial use.
DIFFERENTIAL DIAGNOSIS
The Differential Diagnosis includes, in no particular order and is not limited to:
- Post-acute sequelae of COVID-19 (PACS)
- Deconditioning
- Anxiety disorder
- Chronic fatigue syndrome
- Sleep disturbance due to medication effect
- Polyuria secondary to hydration
- Urinary tract infection
- Electrolyte imbalance
- Anemia
- Heart failure
SUMMARY OF ENCOUNTER
The patient presented with ongoing symptoms of weakness, chills, and shortness of breath [id number] infection, complicated by frequent urination. After evaluation, it was determined that the patients symptoms were not life-threatening, and with
normal lab results except for low lymphocyte count and stable respiratory exam findings, he was considered suitable for discharge with recommendations for at-home symptom management.
DISPOSITION
Discharge
MEDICATION RECONCILIATION
The patient self-reports use of Ropinirole for restless leg syndrome and Pregabalin for neurological conditions. Recommendations include starting awvl-bvq-lqavtcp Doxylamine for sleep.
MEDICAL DECISION MAKING
- Complexity of Data Reviewed: Chronic conditions affecting care include restless leg syndrome and a neurological condition.
- Data:
Category 1
- My independent review of labs indicated normal kidney function and electrolytes, with the noted lymphocyte count low due to recent COVID-19.
Category 2
- External records reviewed indicate prior ER visit diagnosis of constipation, with recent CT scan confirming the diagnosis.
DIAGNOSIS
- Post-acute sequelae of SARS-CoV-2 infection (B94.8)
- Sleep disorder, unspecified (G47.9)
- Polyuria (R35.8)
EKG
- Sinus 70 leftward axis deviation, inferior Q waves, no significant change from 10/07/2024
LABS
- CBC unremarkable however lymphocytopenia is noted. Chemistries unremarkable, troponin 0.014
SUMMARY OF ENCOUNTER
The patient, a 79-year-old male, presented with ongoing symptoms of chills, weakness, shortness of breath, and frequent urination following a recent COVID-19 infection. In the emergency department, his symptoms were assessed to be
tzw-nirz-odsyntbxgzo, with reassuring blood work except for persistent lymphocytopenia related to COVID-19. The consideration of IV fluids was made but declined by the patient. Increased urinary frequency was likely due to increased fluid intake for
hydration. Management focused on outpatient care with recommendations for at-home symptom management.
DISPOSITION
Discharge.
PLAN
Recommend oral hydration at home, suggest trial use of epxm-lvd-regpttc doxylamine for sleep support, advise monitoring symptoms and seeking follow-up care if necessary.
INDEPENDENT REVIEW OF LABS AND INTERPRETATION OF TESTS
My independent review of blood work revealed normal results apart from low lymphocyte count, consistent with prior COVID-19 infection effects.
PATIENT EDUCATION AND COUNSELING
Educated the patient about the possibility of post-acute sequelae of COVID-19 and advised on the importance of maintaining hydration, potential symptoms to monitor, and strategies to improve sleep.
FOLLOW-UP INSTRUCTIONS
Advised the patient to seek follow-up care with their primary care provider if symptoms worsen or do not improve.
MEDICATION RECONCILIATION
- Ropinirole for restless leg syndrome.
- Pregabalin for neurological conditions.
- Recommendation for eifx-tnx-rdaiwhm Doxylamine for sleep support.
MEDICAL DECISION MAKING
- Number and Complexity of Problems Addressed: Chronic conditions affecting care include restless leg syndrome and a neurological condition. Differential diagnosis includes post-acute sequelae of COVID-19, deconditioning, anxiety disorder, chronic
fatigue syndrome, sleep disturbance due to medication effect, polyuria secondary to hydration, urinary tract infection, electrolyte imbalance, anemia, and heart failure.
- Data:
Category 1:
- My independent review of labs indicates persistent lymphocytopenia with otherwise normal results.
Category 2:
- External records reviewed indicate a previous diagnosis of constipation with an unremarkable chest x-ray.
- Risk: Consideration of Admission/Observation: Escalation of care including admission/observation was considered given the complexity and risk of the patients presenting complaint, exam findings, and their underlying comorbidities. However,
ultimately I feel the patient is safe for outpatient management with close follow-up. Reasoning: Work-up reassuring, does not reveal any acute life/organ-threatening processes, patients symptoms well controlled upon reevaluation, reexamination is
reassuring, vitals are stable, patient agreeable with discharge, reliable for follow-up.
DIAGNOSIS
- Post-acute sequelae of SARS-CoV-2 infection (B94.8)
- Sleep disorder, unspecified (G47.9)
- Polyuria (R35.8)
Past History
Past History
ED Past Medical History: Cancer (Prostate CA), HTN, NIDDM (Diet controlled), Hypothyroidism, Psychiatric and Other (Chronic constipation, Colitis, Cellulitis, IBS)
ED Past Surgical History: Other (Hernia repair)
Social History
Tobacco: Non-smoker
Alcohol: None
Drug: Marijuana
Personal:
Living: alone
Employment: Retired
Family History
Family History: Other (Noncontributory)
Phy Exam
Physical Exam
Physical Exam:
See HPI
Course
Orders/Labs/Results
Orders:
Orders
10/13/24 13:09
EKG [Electrocardiogram (*1)] Urgent
Reason for Study: Shortness of Breath
10/13/24 13:10
EKG- Treatment ONCE
10/13/24 13:19
Complete Blood Count/With Diff Urgent
Comprehensive Metabolic Panel Urgent
Troponin I Urgent
Abnormal Lab Results
10/13/24
13:19
Absolute Lymphs (auto) 0.2 L 10^3/uL
(1.2-3.4)
Absolute Monos (auto) 0.7 H 10^3/uL
(0.1-0.6)
Neutrophils % 85.5 H %
(42.2-75.2)
Lymphocytes % 2.8 L %
(20.5-51.1)
Monocytes % 9.5 H %
(1.7-9.3)
Creatinine 0.6 L mg/dL
(0.7-1.3)
Glucose 111 H mg/dl
(70-99)
Total Protein 6.1 L g/dl
(6.3-8.2)
10/13/24 13:19
10/13/24 13:19
Vital Signs
Initial and Last Documented VS:
Initial Vital Signs
Temp Pulse Resp BP Pulse Ox
36.9 C 71 18 119/76 95
10/13/24 13:04 10/13/24 13:04 10/13/24 13:04 10/13/24 13:04 10/13/24 13:04
Last Documented Vital Signs
Temp Pulse Resp BP Pulse Ox
36.9 C 71 18 119/76 95
10/13/24 13:04 10/13/24 13:04 10/13/24 13:04 10/13/24 13:04 10/13/24 17:04
*Pulse Oximetry
SaO2: 95
Patient hypoxic: no
*Critical Care Note
Total Time (30-74mins, 75-104mins- exclusive of procedures): Not Applicable
ED Attending Note
-
Portions of this chart may have been created with voice recognition software.� Occasional wrong word or��sound alike� substitutions may have occurred due to the inherent limitations of voice recognition software.
Discharge Plan
Departure
Patient Disposition: Home (Routine Discharge)
Date of Disposition: 10/13/24
Time of Disposition: 17:19
Patient with high blood pressure during this ER visit?: Yes
Discharge Problem:
Fatigue
Instructions: Fatigue (DC)
Prescriptions:
No Action
levothyroxine 25 MCG tablet
25 mcg PO SUMOTUWETHFR@0800
simethicone [Gas Relief 80 (simethicone)] 80 MG tablet,chewable
80 mg PO QIDPRN PRN (Reason: gas pain) 0RF
beta carotene 25,000 UNIT capsule
25,000 unit PO DAILY
ascorbic acid (vitamin C) [Vitamin C] 500 MG tablet
1,000 mg PO DAILY
temazepam [Restoril] 30 MG capsule
30 mg PO HS
Patient Comments:
04/19/2023, pt. filled this med. on 03/17/2023 for 90 capsules per PDMP.
vitamin E 400 UNIT capsule
1,200 unit PO DAILY
Chamomile
2 capsules PO HS
Multi Mineral
1 tab PO DAILY
zinc 15 mg Tablet
30 mg PO DAILY
gabapentin 600 mg Tablet
1,200 mg PO HS
polyethylene glycol 3350 [Miralax] 17 gram Powder In Packet
17 g PO DAILY
polyethylene glycol 3350 [Miralax] 17 gram Powder In Packet
17 g PO DAILY PRN (Reason: constipation)
clomipramine 75 mg Capsule
75 mg PO HS
melatonin 3 mg Tablet
3 mg PO HS
ondansetron 8 mg Tablet,Disintegrating
8 mg PO Q8H PRN (Reason: nausea/vomiting)
levothyroxine 25 mcg Tablet
50 mcg PO SA@0800
lisinopril 10 mg Tablet
10 mg PO DAILY
naproxen sodium [Aleve] 220 mg Tablet
440 mg PO BID PRN (Reason: mild pain)
ibuprofen 200 mg Tablet
400 mg PO TIDPRN PRN (Reason: mild pain)
ibuprofen 200 mg Tablet
600 mg PO DAILYPRN PRN (Reason: mild pain)
docusate sodium 100 mg Capsule
200 - 300 mg PO HS
zaleplon 10 mg Capsule
10 mg PO HS PRN (Reason: insomnia)
Patient Comments:
04/19/2023, pt. filled this med. on 03/03/2023 for 90 capsules per PDMP.
lorazepam 1 mg Tablet
1 mg PO HS PRN (Reason: anxiety)
Patient Comments:
04/19/2023, pt. filled this med. on 02/04/2023 for 90 tablets per PDMP.
celecoxib 100 mg Capsule
100 mg PO BID PRN (Reason: mild pain)
fluticasone propionate 50 mcg/actuation [place],Suspension
2 spray INTRANASAL BIDPRN PRN (Reason: allergies)
ropinirole 4 mg Tablet
4 mg PO HS
tadalafil 20 mg Tablet
20 mg PO DAILY PRN (Reason: ED)
cholecalciferol (vitamin D3) 125 mcg (5,000 unit) Tablet
250 mcg PO DAILY
omega 0-bym-oth-fish oil [Fish Oil] 1,000 mg (120 mg-180 mg) Capsule
2 cap PO DAILY
cyanocobalamin (vitamin B-12) 5,000 mcg Tablet, Sublingual
10,000 mcg SUBLINGUAL DAILY
Patient Comments:
04/19/2023, per pt., they take 10,000 units SL daily of the hydroxy form of this vitamin as pt. does not absorb vitamin B.
magnesium citrate 100 mg Tablet
500 mg PO HS
Multi B Vitamin
1 tab PO DAILY
Patient Comments:
04/19/2023, per pt., they use hydroxyl form because they do not absorb vitamin B.
pyridoxine (vitamin B6)
1 cap PO DAILY
Patient Comments:
04/19/2023, per pt., they use hydroxyl form because they do not absorb vitamin B.
Referrals:
UNKNOWN - PT DOES,NOT KNOW [Family Provider]
Activity Restrictions/Additional Instructions:
Basic blood work is unremarkable. Lymphocytopenia is again noted as can be seen with COVID-19. EKG and cardiac blood work are unremarkable. Follow-up with your primary care doctor. Return here if worse or other concerns. For sleep, consider
taking waqs-ixs-mmssfyg Unisom (doxylamine) nightly at bedtime.
Interventions
Interventions:
*Risk Screen - Suicide Last Done: 10/13/24 13:04
*General Assessment Last Done: 10/13/24 13:04
*Neglect/Abuse Screening Last Done: 10/13/24 13:04
*ED COVID-19 Vaccine History Last Done: 10/13/24 13:04
Discharge Date and Time
Print Language: VIET[place]ESE
--- NOTE | 2024-10-13 17:10 | EDRN ---
Dr. Newman in to see pt at this time.
--- NOTE | 2024-10-13 17:10 | EDRN ---
Dr. Monroy in room w/pt at this time.
[2024-10-13 17:35] VITALS: BMI 25.7
--- NOTE | 2024-10-13 17:36 | EDRN ---
Pt has been having weakness, SOB, nausea, lightheadness, fatigue and achyness since COVID infection that was yazmin 2 weeks ago.
[2024-10-13 17:39] VITALS: BP 114/80
== END 2024-10-13 17:50 | disposition home or self-care (01) ==
LOC: EMR 13:01
PROVIDERS: Emergency Medicine; EMERGENCY PHYSICIAN Emergency Medicine
DX: R68.83 Chills (without fever) (principal); R06.02 Shortness of breath; R53.1 Weakness; R35.0 Frequency of micturition; R53.83 Other fatigue; I10 Essential (primary) hypertension; G25.81 Restless legs syndrome; E03.9 Hypothyroidism, unspecified; E11.9 Type 2 diabetes mellitus without complications; F41.9 Anxiety disorder, unspecified; I44.0 Atrioventricular block, first degree; K58.9 Irritable bowel syndrome, unspecified; Z79.84 Long term (current) use of oral hypoglycemic drugs
CPT/HCPCS: 99283; 80053; 84484; 85025; 93005